=== PATIENT | female | born 1965 | race Caucasian/White ===

== ENCOUNTER 2018-02-11 15:59 | Emergency (ER) | payer SELFPAY ==
[2018-02-11 16:53] LABS: Hematocrit 30.5 % (30.3-42.9); Hemoglobin 10.3 gm/dl (10.1-14.3); Mean Corpuscular HGB Conc 34 % (30-34); Mean Corpuscular Volume 71 fl (79-97); Platelet Count 358 K/mm3 (140-440)
[2018-02-11 17:05] LABS: BUN/Creatinine Ratio 31; Blood Urea Nitrogen 43 mg/dL (7-17); Calcium 9.7 mg/dL (8.4-10.2); Hemolysis Index 0
[2018-02-11 17:12] LABS: Mean Corpuscular Hemoglobin 24 pg (28-32); Red Cell Distribution Width 21.7 % (13.2-15.2)
[2018-02-11 18:17] LABS: Band Neutrophils # (Manual) 0.9 K/mm3; Basophils % (Manual) 0 % (0.0-1.8); Eosinophils % (Manual) 0 % (0.0-4.3); Total Cells Counted 100
[2018-02-11 18:18] LABS: Anisocytosis 1+
[2018-02-11 18:19] LABS: Hypochromasia 2+; Target Cells Few
[2018-02-11 18:20] LABS: Ovalocytes Few; Platelet Estimate Consistent w Auto; Poikilocytosis Few
[2018-02-11 20:28] VITALS: BP 93/67
== END 2018-02-11 22:30 | disposition left against medical advice (07) ==
LOC: ED 15:59
DX: R07.81 Pleurodynia (principal); Z53.21 Procedure and treatment not carried out due to patient leaving prior to being seen by health care provider
CPT/HCPCS: 36415; 80048; 84484; 84703; 85007; 85025; 93005; 93010

== ENCOUNTER 2018-04-14 23:11 | Inpatient (IN) | payer MEDICAID ==
[2018-04-15 00:11] LABS: Hematocrit 29.5 % (30.3-42.9); Hemoglobin 9.7 gm/dl (10.1-14.3); Mean Corpuscular HGB Conc 33 % (30-34); Mean Corpuscular Volume 76 fl (79-97); Red Blood Count 3.88 M/mm3 (3.65-5.03)
[2018-04-15 00:14] LABS: Mean Corpuscular Hemoglobin 25 pg (28-32); Platelet Count 55 K/mm3 (140-440); Red Cell Distribution Width 20.3 % (13.2-15.2)
[2018-04-15 00:55] LABS: Albumin 2.2 g/dL (3.9-5); Calcium 8.9 mg/dL (8.4-10.2)
--- NOTE | 2018-04-15 02:20 | Emergency Department Report ---
ED Abdominal Pain HPI - General Chief Complaint: Abdominal Pain Stated Complaint: GENERAL WEAKNESS/FATIGUE Time Seen by Provider: 04/15/18 02:19 Source: family Mode of arrival: Stretcher Limitations: No Limitations - History of Present Illness Initial Comments: Patient has a history of intrabdominal cancer with metastasis. Complaint: abdominal pain -: Gradual Location: diffuse Radiation: none Migration to: no migration Severity: severe Severity scale (0 -10): 10 Quality: sharp Consistency: constant Improves With: nothing Worsens With: nothing Associated Symptoms: denies other symptoms - Related Data Previous Rx's Medication Instructions Recorded Last Taken Type ALBUTEROL Inhaler (OR & NICU) 2 puff IH QID PRN #1 unit 02/26/18 Unknown Rx [ProAir HFA Inhaler] Acetaminophen [Acetaminophen TAB] 650 mg PO Q4H PRN #15 tablet 02/26/18 Unknown Rx HYDROmorphone [Dilaudid] 2 mg PO Q6HR PRN #12 tablet 02/26/18 Unknown Rx Ondansetron [Zofran Odt] 4 mg PO Q4H PRN #30 tab.rapdis 02/26/18 Unknown Rx Allergies Allergy/AdvReac Type Severity Reaction Status Date / Time ketorolac [From Toradol] Allergy Swelling Verified 02/11/18 16:01 meperidine [From Demerol] Allergy Swelling Verified 02/11/18 16:01 ED Review of Systems ROS: Stated complaint: GENERAL WEAKNESS/FATIGUE Other details as noted in HPI Comment: Unobtainable due to pts medical conditions (Patient is too sick to give medical history or answer questions.) ED Past Medical Hx - Past Medical History Previous Medical History?: Yes Hx Dementia: No Additional medical history: Colon CA - Surgical History Past Surgical History?: Yes Additional Surgical History: colostomy. gallbadder surgery- not removed. powerport. left knee replacement. right and left carpal tunnel surgery - Social History Smoking Status: Never Smoker Substance Use Type: None - Medications Home Medications: Home Medications Medication Instructions Recorded Confirmed Last Taken Type ALBUTEROL Inhaler (OR & NICU) 2 puff IH QID PRN #1 unit 02/26/18 Unknown Rx [ProAir HFA Inhaler] Acetaminophen [Acetaminophen TAB] 650 mg PO Q4H PRN #15 tablet 02/26/18 Unknown Rx HYDROmorphone [Dilaudid] 2 mg PO Q6HR PRN #12 tablet 02/26/18 Unknown Rx Ondansetron [Zofran Odt] 4 mg PO Q4H PRN #30 tab.rapdis 02/26/18 Unknown Rx ED Physical Exam - General Limitations: No Limitations General appearance: alert, in distress - Head Head exam: Present: atraumatic, normocephalic, normal inspection - Eye Eye exam: Present: normal appearance, PERRL, EOMI Pupils: Present: normal accommodation - ENT ENT exam: Present: normal exam, mucous membranes dry - Neck Neck exam: Present: normal inspection, full ROM. Absent: tenderness - Respiratory Respiratory exam: Present: rales (bases) - Cardiovascular Cardiovascular Exam: Present: regular rate, normal rhythm, normal heart sounds - GI/Abdominal GI/Abdominal exam: Present: soft, tenderness (Diffused), guarding, normal bowel sounds. Absent: distended, rebound, rigid - Extremities Exam Extremities exam: Present: normal inspection, full ROM, normal capillary refill - Back Exam Back exam: Present: normal inspection, full ROM - Neurological Exam Neurological exam: Present: alert - Psychiatric Psychiatric exam: Present: flat affect - Skin Skin exam: Present: warm, dry, intact, normal color. Absent: rash ED Course Vital Signs 04/14/18 04/15/18 04/15/18 23:36 00:28 00:30 Temperature 98.7 F Pulse Rate 72 101 H Respiratory 17 24 24 Rate Blood Pressure 97/55 73/42 O2 Sat by Pulse 99 94 Oximetry 04/15/18 04/15/18 04/15/18 01:00 01:07 01:16 Temperature 98 F Pulse Rate 98 H 103 H Respiratory 37 H 31 H Rate Blood Pressure 79/56 79/56 O2 Sat by Pulse 89 Oximetry 04/15/18 04/15/18 04/15/18 01:30 01:46 02:00 Temperature Pulse Rate 96 H 101 H 98 H Respiratory 30 H 28 H 30 H Rate Blood Pressure 82/34 82/34 82/34 O2 Sat by Pulse 100 89 Oximetry 04/15/18 04/15/18 04/15/18 02:16 02:30 02:46 Temperature Pulse Rate 97 H 93 H 100 H Respiratory 29 H 19 30 H Rate Blood Pressure 86/32 86/32 O2 Sat by Pulse 75 L Oximetry 1004/15/18 04/15/18 03:00 03:15 03:30 Temperature Pulse Rate 87 85 85 Respiratory 21 20 16 Rate Blood Pressure 73/38 83/41 62/27 O2 Sat by Pulse 100 100 Oximetry 04/15/18 04/15/18 04/15/18 03:40 03:45 03:49 Temperature Pulse Rate 90 Respiratory 22 23 22 Rate Blood Pressure 75/33 O2 Sat by Pulse 100 100 Oximetry 04/15/18 04/15/18 04/15/18 04:00 04:10 04:15 Temperature Pulse Rate 87 91 H Respiratory 24 22 27 H Rate Blood Pressure 76/31 81/31 O2 Sat by Pulse 100 100 Oximetry 04/15/18 04/15/18 04/15/18 04:30 05:00 05:04 Temperature Pulse Rate 95 H 86 Respiratory 29 H 23 22 Rate Blood Pressure 76/36 79/36 O2 Sat by Pulse 100 100 Oximetry 04/15/18 04/15/18 04/15/18 05:15 05:30 05:34 Temperature Pulse Rate 82 91 H Respiratory 17 31 H 20 Rate Blood Pressure 83/45 75/31 O2 Sat by Pulse 100 Oximetry 04/15/18 04/15/18 04/15/18 05:46 06:00 06:15 Temperature Pulse Rate 91 H 89 84 Respiratory 22 22 16 Rate Blood Pressure 92/56 105/64 95/59 O2 Sat by Pulse 100 Oximetry 04/15/18 04/15/18 04/15/18 06:30 06:46 07:00 Temperature Pulse Rate 91 H 101 H 87 Respiratory 24 27 H 19 Rate Blood Pressure 95/59 94/55 76/42 O2 Sat by Pulse 100 100 100 Oximetry 04/15/18 07:15 Temperature Pulse Rate 86 Respiratory 15 Rate Blood Pressure 87/51 O2 Sat by Pulse 100 Oximetry - Consultations Consultation #1: 04/15/18 06:05 I consulted the hospitalist partition assembly machine operator Dr Kanwal Warner who will admit patient for further management. ED Medical Decision Making - Lab Data Result diagrams: 04/14/18 23:52 04/14/18 23:52 Lab Results 04/14/18 04/14/18 Range/Units 23:52 23:52 WBC 12.7 H (4.5-11.0) K/mm3 RBC 3.88 (3.65-5.03) M/mm3 Hgb 9.7 L (10.1-14.3) gm/dl Hct 29.5 L (30.3-42.9) % MCV 76 L (79-97) fl MCH 25 L (28-32) pg MCHC 33 (30-34) % RDW 20.3 H (13.2-15.2) % Plt Count 55 L (140-440) K/mm3 Add Manual Diff Complete Total Counted 100 Seg Neuts % (Manual) 90.0 H (40.0-70.0) % Band Neutrophils % 0 % Lymphocytes % (Manual) 10.0 L (13.4-35.0) % Reactive Lymphs % (Man) 0 % Monocytes % (Manual) 0 (0.0-7.3) % Eosinophils % (Manual) 0 (0.0-4.3) % Basophils % (Manual) 0 (0.0-1.8) % Metamyelocytes % 0 % Myelocytes % 0 % Promyelocytes % 0 % Blast Cells % 0 % Nucleated RBC % 2.0 H (0.0-0.9) % Seg Neutrophils # Man 11.4 H (1.8-7.7) K/mm3 Band Neutrophils # 0.0 K/mm3 Lymphocytes # (Manual) 1.3 (1.2-5.4) K/mm3 Abs React Lymphs (Man) 0.0 K/mm3 Monocytes # (Manual) 0.0 (0.0-0.8) K/mm3 Eosinophils # (Manual) 0.0 (0.0-0.4) K/mm3 Basophils # (Manual) 0.0 (0.0-0.1) K/mm3 Metamyelocytes # 0.0 K/mm3 Myelocytes # 0.0 K/mm3 Promyelocytes # 0.0 K/mm3 Blast Cells # 0.0 K/mm3 WBC Morphology Not Reportable Hypersegmented Neuts Not Reportable Hyposegmented Neuts Not Reportable Hypogranular Neuts Not Reportable Smudge Cells Not Reportable Toxic Granulation Not Reportable Toxic Vacuolation Not Reportable Dohle Bodies Not Reportable Pelger-Huet Anomaly Not Reportable Mary Rods Not Reportable Platelet Estimate Appears decreased Clumped Platelets Not Reportable Plt Clumps, EDTA Not Reportable Large Platelets Not Reportable Giant Platelets Not Reportable Platelet Satelliting Not Reportable Plt Morphology Comment Not Reportable RBC Morphology Not Reportable Dimorphic RBCs Not Reportable Polychromasia Not Reportable Hypochromasia 1+ Poikilocytosis Not Reportable Anisocytosis 1+ Microcytosis Not Reportable Macrocytosis Not Reportable Spherocytes Not Reportable Pappenheimer Bodies Not Reportable Sickle Cells Not Reportable Target Cells 2+ Tear Drop Cells Not Reportable Ovalocytes Not Reportable Helmet Cells Not Reportable Rich-Hust[place]ord Bodies Not Reportable [place] Rings Not Reportable [place] Cells Not Reportable Bite Cells Not Reportable Crenated Cell Not Reportable Elliptocytes Not Reportable Acanthocytes (Spur) Not Reportable Rouleaux Not Reportable Hemoglobin C Crystals Not Reportable Schistocytes Not Reportable Malaria parasites Not Reportable Emanuel Bodies Not Reportable Hem Pathologist Commnt No Sodium 140 (137-145) mmol/L Potassium 4.0 (3.6-5.0) mmol/L Chloride 97.5 L (98-107) mmol/L Carbon Dioxide 11 L (22-30) mmol/L Anion Gap 36 mmol/L BUN 102 H (7-17) mg/dL Creatinine 6.5 H (0.7-1.2) mg/dL Estimated GFR 7 ml/min BUN/Creatinine Ratio 16 % Glucose 74 (65-100) mg/dL Calcium 8.9 (8.4-10.2) mg/dL Total Bilirubin 12.50 H (0.1-1.2) mg/dL AST 68 H (5-40) units/L ALT 44 (7-56) units/L Alkaline Phosphatase 1685 H (35-129) units/L Total Protein 6.7 (6.3-8.2) g/dL Albumin 2.2 L (3.9-5) g/dL Albumin/Globulin Ratio 0.5 % Lipase 63 H (13-60) units/L - Radiology Data Radiology results: report reviewed, image reviewed Metastatic abdominal malignancy on CT abdomen and pelvis. - Medical Decision Making Patient will be admitted by the hospitalist since her family wants her to be full code and admitted to the hospital. Critical Care Time: Yes Critical care time in (mins) excluding proc time.: 50 Critical care attestation.: If time is entered above; I have spent that time in minutes in the direct care of this critically ill patient, excluding procedure time. ED Disposition Clinical Impression: Neoplasm, intra-abdominal, malignant Pneumonia Qualifiers: Pneumonia type: due to unspecified organism Laterality: unspecified laterality Lung location: lower lobe of lung Qualified Code(s): J18.1 - Lobar pneumonia, unspecified organism Sepsis Qualifiers: Sepsis type: sepsis due to unspecified organism Qualified Code(s): A41.9 - Sepsis, unspecified organism Hypotension Qualifiers: Hypotension type: unspecified hypotension type Qualified Code(s): I95.9 - Hypotension, unspecified Disposition: DC-09 OP ADMIT IP TO THIS HOSP Is pt being admited?: Yes Does the pt Need Aspirin: No Condition: Stable Time of Disposition: 05:54
[2018-04-15] MEDS ORDERED: NACL 0.9% 1000 ML 1,000 ML IV ONE ×3 (02:32→03:38)
[2018-04-15] MEDS ORDERED: ZOFRAN IV ONE (02:32)
[2018-04-15 02:47] LABS: Basophils % (Manual) 0 % (0.0-1.8); Eosinophils % (Manual) 0 % (0.0-4.3); Monocytes % (Manual) 0 % (0.0-7.3); Target Cells 2+; Total Cells Counted 100
[2018-04-15 02:48] LABS: Anisocytosis 1+; Hypochromasia 1+; Platelet Estimate Appears Decreased
[2018-04-15] MEDS ORDERED: SUBLIMAZE IV ONE ×2 (02:56→03:39)
[2018-04-15] MEDS ORDERED: SUBLIMAZE ONE (03:00)
--- NOTE | 2018-04-15 03:13 | XRay Report ---
FINAL REPORT PROCEDURE: XR ABDOMEN 1V AP TECHNIQUE: AP supine portable radiograph of the abdomen was obtained at 04/15/2018 02:44 (EST) . HISTORY: abdominal pain COMPARISON: No prior studies are available for comparison. FINDINGS: Bowel gas pattern: Nonobstructive. Masses or calcifications: None. Bony structures: Normal. Other: There is a right lower quadrant masslike density corresponding to the patient is colostomy.. There is a biliary stent. IMPRESSION: There is no bowel obstruction, fecal impaction or free air.
--- NOTE | 2018-04-15 03:16 | XRay Report ---
FINAL REPORT PROCEDURE: XR CHEST 1V AP TECHNIQUE: Chest radiograph anteroposterior view. CPT 39182 HISTORY: anni COMPARISON: No prior studies are available for comparison. FINDINGS: Heart: Normal. Mediastinum/Vessels: Normal. Lungs/Pleural space: There are opacities in the right lung which are increased in size since the prior study suggesting worsened infiltrates or enlarging masses. There is a left perihilar opacity which could be mass or enlarged lymph node. There are no pleural effusions or pneumothoraces. Bony thorax: No acute osseous abnormality. Life support devices: There is a left subclavian central venous catheter. The tip is in the superior vena cava.. IMPRESSION: Heart size is normal.. There are opacities in the right lung which are increased in size since the prior study suggesting worsened infiltrates or enlarging masses. There is a left perihilar opacity which could be mass or enlarged lymph node. There are no pleural effusions or pneumothoraces. There is a left subclavian central venous catheter. The tip is in the superior vena cava..
[2018-04-15] MEDS ORDERED: LEVAQUIN 750MG/150ML 750 MG/150 ML BAG IV ONE (03:34)
[2018-04-15] MEDS ORDERED: NACL 0.9% 1000 ML IV ONE (03:35)
[2018-04-15] MEDS ORDERED: LEVOPHED DRIP 4 MG/NS 250 ML 4 MG/250 ML BAG IV ONE (04:31)
--- NOTE | 2018-04-15 05:35 | Cat Scan Report ---
FINAL REPORT PROCEDURE: CT ABDOMEN PELVIS WO CON TECHNIQUE: Computerized axial tomography of the abdomen and pelvis was performed without intravenous contrast. This study is performed without intravascular contrast material and its sensitivity for abdominal and pelvic pathology, including neoplasms, inflammation, abscess, free fluid, thrombosis, arterial dissection and infarction, is reduced compared with a contrast enhanced study. HISTORY: Abdominal Pain COMPARISON: 02/24/2018 FINDINGS: Visualized lower thorax: Bilateral pulmonary masses again noted suspicious for metastatic malignancy.. Liver: Liver is enlarged and heterogeneous with evidence of possible metastatic malignancy.. Spleen: Normal size and attenuation. Gallbladder and biliary system: There has been a cholecystectomy. There is a stent in the common bile duct. The intrahepatic bile ducts are dilated.. Pancreas: There is a mass in the head of the pancreas suspicious for malignancy.. Adrenals: There is a left adrenal mass suspicious for malignancy.. Kidneys: There are no kidney stones or ureteral stones. There is no hydronephrosis.. GI tract: There is a right lower quadrant colostomy. There is no bowel obstruction.. Lymph nodes and mesentery: Normal. Vasculature: Normal. Bladder: Normal. Reproductive organs: Normal. Peritoneum: There is no ascites or free air.. Musculoskeletal structures: No significant abnormality. Other: There is bilateral inguinal lymphadenopathy. There is pelvic and retroperitoneal and mesenteric adenopathy suspicious for metastatic malignancy.. IMPRESSION: Bilateral pulmonary masses again noted suspicious for metastatic malignancy.. Liver is enlarged and heterogeneous with evidence of possible metastatic malignancy.. There has been a cholecystectomy. There is a stent in the common bile duct. The intrahepatic bile ducts are dilated.. There is a mass in the head of the pancreas suspicious for malignancy.. There is a left adrenal mass suspicious for malignancy.. There are no kidney stones or ureteral stones. There is no hydronephrosis.. There is a right lower quadrant colostomy. There is no bowel obstruction.. There is no ascites or free air.. There is bilateral inguinal lymphadenopathy. There is pelvic and retroperitoneal and mesenteric adenopathy suspicious for metastatic malignancy.. .
--- NOTE | 2018-04-15 06:07 | History and Physical Report ---
History of Present Illness Date of examination: 04/15/18 History of present illness: 52-year-old lady with a history of metastatic colon cancer status post colostomywas brought to the emergency room by her daughter for evaluation of optimal pain. Patient was on hospice, the daughter took her off hospice and made her full code. She has chronic abdominal pain, but stated her pain got worse. Patient at this time only states she is hurting all over, cannot refer to history. Try to reach the daughter without success. She was hypotensive in the emergency room was started on levophed drip. Review of systems. Patient was admitted in February, admission reviewed PAST MEDICAL HISTORY: Metastatic colon cancer PAST SURGICAL HISTORY: Colon resection with Colostomy, cholecystectomy, bilateral knee, cataract SOCIAL HISTORY: No alcohol, no drugs, tobacco FAMILY HISTORY: Hypertension Medications and Allergies Allergies Allergy/AdvReac Type Severity Reaction Status Date / Time ketorolac [From Toradol] Allergy Swelling Verified 02/11/18 16:01 meperidine [From Demerol] Allergy Swelling Verified 02/11/18 16:01 Home Medications Medication Instructions Recorded Confirmed Last Taken Type ALBUTEROL Inhaler (OR & NICU) 2 puff IH QID PRN #1 unit 02/26/18 Unknown Rx [ProAir HFA Inhaler] Acetaminophen [Acetaminophen TAB] 650 mg PO Q4H PRN #15 tablet 02/26/18 Unknown Rx HYDROmorphone [Dilaudid] 2 mg PO Q6HR PRN #12 tablet 02/26/18 Unknown Rx Ondansetron [Zofran Odt] 4 mg PO Q4H PRN #30 tab.rapdis 02/26/18 Unknown Rx Active Meds: Active Medications Norepinephrine (Levophed Drip 4 Mg/Ns 250 Ml) 4 mg in 250 mls @ 7.5 mls/hr IV TITR LIBRADO; Protocol Exam - Physical Exam Narrative exam: Gen. appearance: Patient lying in bed, no apparent distress, cachectic HEENT: Normocephalic, atraumatic, pupils equally round and reactive to light, extraocular movement intact, +sclericterus,. No JVD or thyromegaly or nodule, neck supple, no carotid bruit ,mucous membranes moist, no exudate or erythema Heart: S1, S2, regular rate and rhythm Lungs: Clear bilaterally anteriorly, breathing comfortable Abdomen: Positive bowel sounds,+ colostomy bag, tender, nondistended, no organomegaly Extremity:no edema cyanosis, clubbing Skin: no rash, dry, warm Neuro: difficult to assess - Constitutional Vitals: Temp Pulse Resp BP Pulse Ox 98 F 90 22 75/33 100 04/15/18 01:07 04/15/18 03:45 04/15/18 05:04 04/15/18 03:45 04/15/18 03:49 Results - Labs CBC & Chem 7: 04/14/18 23:52 04/14/18 23:52 Labs: Abnormal lab results 04/14/18 04/14/18 Range/Units 23:52 23:52 WBC 12.7 H (4.5-11.0) K/mm3 Hgb 9.7 L (10.1-14.3) gm/dl Hct 29.5 L (30.3-42.9) % MCV 76 L (79-97) fl MCH 25 L (28-32) pg RDW 20.3 H (13.2-15.2) % Plt Count 55 L (140-440) K/mm3 Seg Neuts % (Manual) 90.0 H (40.0-70.0) % Lymphocytes % (Manual) 10.0 L (13.4-35.0) % Nucleated RBC % 2.0 H (0.0-0.9) % Seg Neutrophils # Man 11.4 H (1.8-7.7) K/mm3 Chloride 97.5 L (98-107) mmol/L Carbon Dioxide 11 L (22-30) mmol/L BUN 102 H (7-17) mg/dL Creatinine 6.5 H (0.7-1.2) mg/dL Total Bilirubin 12.50 H (0.1-1.2) mg/dL AST 68 H (5-40) units/L Alkaline Phosphatase 1685 H (35-129) units/L Albumin 2.2 L (3.9-5) g/dL Lipase 63 H (13-60) units/L - Imaging and Cardiology CT scan - abdomen: report reviewed CT scan - pelvis: report reviewed Assessment and Plan Assessment Worsening abdominal pain secondary to worsening colon cancer Acute on chronic renal failure, dehydration SIRS Thrombocytopenia Colon Cancer Plan Admit to medicine Stat IV fluid,continue levophed drip,check lactic acid Start IV vancomycin, Zosyn, first dose now, follow cultures Consult renal, critical care Prognosis is poor DVT prophalaxis
[2018-04-15] MEDS ORDERED: TYLENOL PR PRN (06:10)
[2018-04-15] MEDS ORDERED: TYLENOL PO PRN (06:10)
[2018-04-15] MEDS ORDERED: MORPHINE IV PRN (06:10)
[2018-04-15] MEDS ORDERED: ZOFRAN IV PRN (06:10)
[2018-04-15] MEDS ORDERED: SODIUM CHLORIDE FLUSH SYRINGE 10 ML IV PRN (06:10)
[2018-04-15] MEDS: LEVOPHED DRIP 4 MG/NS 250 ML 4 MG/250 ML BAG IV SCH ×5 (06:13→23:41)
[2018-04-15] MEDS ORDERED: VANCOMYCIN/NS 1 GM/250 ML 1 GM/250 ML BAG IV ONE (06:14)
[2018-04-15] MEDS ORDERED: VANCOMYCIN 2,000 MG in NACL 0.9% 500 ML 500 ML IV ONE (06:15)
[2018-04-15] MEDS ORDERED: VANCOMYCIN 500 MG in NACL 0.9% 100 ML IV ONE (06:30)
[2018-04-15] MEDS ORDERED: NACL 0.9% 1000 ML 1,000 ML IV SCH ×3 (07:00→18:00)
[2018-04-15] MEDS ORDERED: VANCOMYCIN/NS 1 GM/250 ML 1 GM/250 ML BAG IV SCH ×2 (07:00→13:00)
[2018-04-15 07:05] LABS: Bacteria,Urine 4+ /HPF (Negative); Bilirubin,Urine SM (Negative); Blood,Urine MOD (Negative); Color,Urine Amber (Yellow); Mucus,Urine FEW /HPF; Urobilinogen,Urine < 2.0 mg/dL (<2.0)
[2018-04-15 07:23] LABS: Ictotest,Urine Positive (Negative)
[2018-04-15 07:28] LABS: INR 1.4 (0.87-1.13)
[2018-04-15] MEDS ORDERED: ZOSYN/NS 2.25 GM/50ML 2.25 GM/50 ML BAG IV SCH (08:00)
--- NOTE | 2018-04-15 08:16 | Consultation ---
History of Present Illness - Reason for Consult Consult date: 04/15/18 acute renal failure, chronic renal failure - History of Present Illness The patient is a 52 YO female with history significant for Colon cancer, s/p colostomy(2017), chronic back pain and CKD stage 3 who was brought to the emergency room by her daughter for evaluation of abdominal pain. Unable to obtain any histroy from patient and no family member was at the bedside. Patient was on hospice, the daughter took her off hospice and made her full code. She has chronic abdominal pain, which has gotten worse. She was hypotensive in the emergency room was started on Levophed drip and received multiple IV fluid boluses. Labs are significant for Leukocytosis, creatinine 5.7 and Lactic acidosis. Past History Past Medical History: renal failure, other (colon cancer) Medications and Allergies Allergies Allergy/AdvReac Type Severity Reaction Status Date / Time ketorolac [From Toradol] Allergy Swelling Verified 02/11/18 16:01 meperidine [From Demerol] Allergy Swelling Verified 02/11/18 16:01 Home Medications Medication Instructions Recorded Confirmed Last Taken Type ALBUTEROL Inhaler (OR & NICU) 2 puff IH QID PRN #1 unit 02/26/18 Unknown Rx [ProAir HFA Inhaler] Acetaminophen [Acetaminophen TAB] 650 mg PO Q4H PRN #15 tablet 02/26/18 Unknown Rx HYDROmorphone [Dilaudid] 2 mg PO Q6HR PRN #12 tablet 02/26/18 Unknown Rx Ondansetron [Zofran Odt] 4 mg PO Q4H PRN #30 tab.rapdis 02/26/18 Unknown Rx Active Meds: Active Medications Acetaminophen (Tylenol) 650 mg PO Q4H PRN PRN Reason: Pain MILD(1-3)/Fever >100.5/BATES Acetaminophen (Tylenol) 650 mg [place] Q4H PRN PRN Reason: Pain MILD(1-3)/Fever >100.5/BATES Norepinephrine (Levophed Drip 4 Mg/Ns 250 Ml) 4 mg in 250 mls @ 7.5 mls/hr IV TITR LIBRADO; Protocol Last Titration: 04/15/18 07:19 Dose: 10 mcg/min, 37.5 mls/hr Piperacillin Sod/Tazobactam Sod (Zosyn/Ns 2.25 Gm/50ml) 2.25 gm in 50 mls @ 100 mls/hr IV Q8H LIBRADO; Protocol Sodium Chloride (Nacl 0.9% 1000 Ml) 1,000 mls @ 75 mls/hr IV DIRECT LIBRADO Morphine Sulfate (Morphine) 1 mg IV Q4H PRN PRN Reason: Pain, Moderate (4-6) Ondansetron HCl (Zofran) 4 mg IV Q4H PRN PRN Reason: Nausea And Vomiting Sodium Chloride (Sodium Chloride Flush Syringe 10 Ml) 10 ml IV BID LIBRADO Sodium Chloride (Sodium Chloride Flush Syringe 10 Ml) 10 ml IV PRN PRN PRN Reason: LINE FLUSH Review of Systems ROS unobtainable: due to mental status Exam - Vital Signs Vital signs: Vital Signs Temp Pulse Resp BP Pulse Ox 98.7 F 72 17 97/55 99 04/14/18 23:36 04/14/18 23:36 04/14/18 23:36 04/14/18 23:36 04/14/18 23:36 - General Appearance General appearance: well-developed, appears stated age, cachectic, chronically ill, frail EENT: ATNC, PERRL, mucous membranes dry Neck: Present: neck supple, trachea midline Respiratory: Clear to Ascultation Heart: regular, S1S2, no murmurs Gastrointestinal: Present: normoactive bowel sounds, other (ostomy noted). Absent: distended Integumentary: no rash, warm and dry Neurologic: other (lethargic, not following any command) Musculoskeletal: Present: other (no edema) Results - Lab Results 04/15/18 11:40 04/15/18 11:40 Most recent lab results Calcium 8.9 mg/dL (8.4-10.2) 04/14/18 23:52 Assessment and Plan 1. Acute kidney injury: Vasomotor / hemodynamic JEANNE superimposed on CKD stage 3 in the setting of hypotension / shock. CT negative for any hydronephrosis. Continue IV fluid bolus. Maintenance IV fluids. Renal prognosis is guarded. 2. Lactic acidosis: IV bicarbonate drip. 3. Septic shock: Multiple IV anitbiotics and IV Levophed. 4. Encephalopathy.
[2018-04-15] MEDS: SODIUM CHLORIDE FLUSH SYRINGE 10 ML IV SCH ×2 (09:13→22:25)
--- NOTE | 2018-04-15 10:29 | Event Note ---
Date: 04/15/18 Patient seen and examined, with nursing staff at the bedside. Patient remains remarkably weak and lethergic. Lactic acid rising. Per information from family conveyed to the Nursing staff patient with hx of Colon CA. unable to get more information at this time. Will give additional 2 liter fluids. Also will consult Nephrology and ID. Right lower ext is noted to be edematous and cool to the touch, will obtain doppler to eval for DVT and also may need a PAD work up if Doppler is negative. Specification Consultant consult Patient is critically ill with poor prognosis She has a left chest port.
--- NOTE | 2018-04-15 12:10 | Consultation ---
History of Present Illness - Reason for Consult Consult date: 04/15/18 Septic shock Requesting physician: ABDIFATAH MCKINNON - History of Present Illness The patient is a 52-year-old female with metastatic colon cancer, status post colostomy who was brought to the emergency room last night with complaints of abdominal pain. Reportedly, the patient was on hospice, however, her daughter took her off hospice and brought her to the hospital. Patient is unable to provide any history. Only appears to be moaning in bed. Upon arrival, she was noted to be hypotensive. Was given IV fluids and started on IV levophed. Was also empirically started on IV vancomycin and Zosyn. History obtained by chart review and by discussing the patient's bedside RN. Review of systems cannot be obtained due to the patient's mental status. Medications and Allergies Allergies Allergy/AdvReac Type Severity Reaction Status Date / Time ketorolac [From Toradol] Allergy Swelling Verified 02/11/18 16:01 meperidine [From Demerol] Allergy Swelling Verified 02/11/18 16:01 Home Medications Medication Instructions Recorded Confirmed Last Taken Type ALBUTEROL Inhaler (OR & NICU) 2 puff IH QID PRN #1 unit 02/26/18 Unknown Rx [ProAir HFA Inhaler] Acetaminophen [Acetaminophen TAB] 650 mg PO Q4H PRN #15 tablet 02/26/18 Unknown Rx HYDROmorphone [Dilaudid] 2 mg PO Q6HR PRN #12 tablet 02/26/18 Unknown Rx Ondansetron [Zofran Odt] 4 mg PO Q4H PRN #30 tab.rapdis 02/26/18 Unknown Rx Active Meds: Active Medications Acetaminophen (Tylenol) 650 mg PO Q4H PRN PRN Reason: Pain MILD(1-3)/Fever >100.5/BATES Acetaminophen (Tylenol) 650 mg [place] Q4H PRN PRN Reason: Pain MILD(1-3)/Fever >100.5/BATES Norepinephrine (Levophed Drip 4 Mg/Ns 250 Ml) 4 mg in 250 mls @ 7.5 mls/hr IV TITR LIBRADO; Protocol Last Titration: 04/15/18 09:07 Dose: 12 mcg/min, 45 mls/hr Piperacillin Sod/Tazobactam Sod (Zosyn/Ns 2.25 Gm/50ml) 2.25 gm in 50 mls @ 100 mls/hr IV Q8H LIBRADO; Protocol Last Admin: 04/15/18 09:13 Dose: 100 mls/hr Sodium Chloride (Nacl 0.9% 1000 Ml) 1,000 mls @ 75 mls/hr IV DIRECT [facility] Last Admin: 04/15/18 10:55 Dose: 75 mls/hr Sodium Chloride (Nacl 0.9% 1000 Ml) 1,000 mls @ 0 mls/hr IV ONCE [facility] Stop: 04/16/18 11:01 Morphine Sulfate (Morphine) 1 mg IV Q4H PRN PRN Reason: Pain, Moderate (4-6) Ondansetron HCl (Zofran) 4 mg IV Q4H PRN PRN Reason: Nausea And Vomiting Sodium Chloride (Sodium Chloride Flush Syringe 10 Ml) 10 ml IV BID [facility] Last Admin: 04/15/18 09:13 Dose: 10 ml Sodium Chloride (Sodium Chloride Flush Syringe 10 Ml) 10 ml IV PRN PRN PRN Reason: LINE FLUSH Physical Examination - Physical Exam Narrative exam: Physical Exam: Constitutional: Awake, moaning in bed, in moderate distress from pain Head, Ears, Nose: Normocephalic, atraumatic. External ears, nose normal Eyes: Conjunctivae/corneas clear. Icterus +, No ptosis. Neck: Supple, no meningeal signs Oral: appears dry, no thrush. Cardiovascular: S1, S2 normal. Respiratory: bilateral rhonchi +, no wheeze. GI: diffusely tender; bowel sounds present No peritoneal signs. colostomy + in RLQ. Musculoskeletal: No pedal edema. Appears to be tender all over Skin: No rash or abscess Hem/Lymphatic: No palpable cervical or supraclavicular nodes. No lymphangitis Psych: no agitation, but appears in discomfort Neurological: Awake, moaning in bed, doesn't answer questions. - Constitutional Vitals: Vital Signs Temp Pulse Resp BP Pulse Ox 96.7 F L 80 19 101/54 100 04/15/18 08:00 04/15/18 11:00 04/15/18 11:00 04/15/18 11:00 04/15/18 11:00 Temperature -Last 24 Hours Temperature 96.7 F Temperature 98 F Temperature 98.7 F Results - Labs CBC & Chem 7: 04/14/18 23:52 04/14/18 23:52 Labs: UA showed 66 WBCs per high power field. Abnormal lab results 04/14/18 04/14/18 04/15/18 Range/Units 23:52 23:52 05:49 WBC 12.7 H (4.5-11.0) K/mm3 Hgb 9.7 L (10.1-14.3) gm/dl Hct 29.5 L (30.3-42.9) % MCV 76 L (79-97) fl MCH 25 L (28-32) pg RDW 20.3 H (13.2-15.2) % Plt Count 55 L (140-440) K/mm3 Seg Neuts % (Manual) 90.0 H (40.0-70.0) % Lymphocytes % (Manual) 10.0 L (13.4-35.0) % Nucleated RBC % 2.0 H (0.0-0.9) % Seg Neutrophils # Man 11.4 H (1.8-7.7) K/mm3 PT (12.2-14.9) Sec. INR (0.87-1.13) Chloride 97.5 L (98-107) mmol/L Carbon Dioxide 11 L (22-30) mmol/L BUN 102 H (7-17) mg/dL Creatinine 6.5 H (0.7-1.2) mg/dL Lactic Acid (0.7-2.0) mmol/L Total Bilirubin 12.50 H (0.1-1.2) mg/dL AST 68 H (5-40) units/L Alkaline Phosphatase 1685 H (35-129) units/L Albumin 2.2 L (3.9-5) g/dL Lipase 63 H (13-60) units/L Urine WBC (Auto) 66.0 H (0.0-6.0) /HPF 04/15/18 04/15/18 04/15/18 Range/Units 06:27 06:47 08:55 WBC (4.5-11.0) K/mm3 Hgb (10.1-14.3) gm/dl Hct (30.3-42.9) % MCV (79-97) fl MCH (28-32) pg RDW (13.2-15.2) % Plt Count (140-440) K/mm3 Seg Neuts % (Manual) (40.0-70.0) % Lymphocytes % (Manual) (13.4-35.0) % Nucleated RBC % (0.0-0.9) % Seg Neutrophils # Man (1.8-7.7) K/mm3 PT 17.7 H (12.2-14.9) Sec. INR 1.40 H (0.87-1.13) Chloride (98-107) mmol/L Carbon Dioxide (22-30) mmol/L BUN (7-17) mg/dL Creatinine (0.7-1.2) mg/dL Lactic Acid 8.60 H* 9.40 H* (0.7-2.0) mmol/L Total Bilirubin (0.1-1.2) mg/dL AST (5-40) units/L Alkaline Phosphatase (35-129) units/L Albumin (3.9-5) g/dL Lipase (13-60) units/L Urine WBC (Auto) (0.0-6.0) /HPF - Imaging and Cardiology Chest x-ray: report reviewed, image reviewed (Chest x-ray shows evidence of a left-sided port, right middle and lower lobe opacities.) CT scan - abdomen: report reviewed, image reviewed (CT abdomen and pelvis was reviewed and showed evidence of hepatic and pulmonary metastasis with lymphadenopathy. No free fluid.) Assessment and Plan Cultures: 04/15/2018 blood culture: In process A/P: 52-year-old female with metastatic colon cancer status post colostomy who was on hospice now admitted with: 1) Septic shock, likely secondary to cholestatic jaundice, possible acute cholangitis: This is likely secondary to obstruction from malignancy. Her alkaline phosphatase and bilirubin are significantly elevated compared to her February 2018 admission. Patient also has evidence of lactic acidosis, shock requiring pressors. From a respiratory standpoint, she is not requiring any oxygen, she however has evidence of bilateral pulmonary metastases and there could be a component of a small postobstructive pneumonia. Given her indwelling port, a bacteremia is possible as well, for now continue empiric antibiotics (switch Zosyn to Cefepime and Flagyl) and vancomycin which should provide adequate coverage for intra-abdominal/cholangitis source and bacteremia. 2) Acute renal failure: Creatinine on admission was 6.5, during her previous admission in February 2018, it was 1.6. Renally dose abx. Recs: -Given her acute renal failure, will switch Zosyn to Cefepime to avoid Zosyn- Vancomycin combination (this is associated with a four-fold increased risk of JEANNE compared to Vancomycin and other beta-lactam combinations based on several observational studies) -added Flagyl for anaerobic coverage -Prognosis is extremely poor, recommend palliative care Plan d/w Dr. Mckinnon. Please call with questions. Will follow along. MD Joelle [facility] C: [phone] O: [phone] F: [phone]
--- NOTE | 2018-04-15 12:10 | Consultation ---
History of Present Illness Consult date: 04/15/18 Requesting physician: ALVIN FERRARO Reason for consult: other (SIRS; Abdominal Pain; Colon Cancer; JEANNE on CKD) History of present illness: PULMONARY/CCM CONSULT NOTE (Full dictation # [id number]) Please see dictated notes for full details Medications and Allergies Allergies Allergy/AdvReac Type Severity Reaction Status Date / Time ketorolac [From Toradol] Allergy Swelling Verified 02/11/18 16:01 meperidine [From Demerol] Allergy Swelling Verified 02/11/18 16:01 Home Medications Medication Instructions Recorded Confirmed Last Taken Type ALBUTEROL Inhaler (OR & NICU) 2 puff IH QID PRN #1 unit 02/26/18 Unknown Rx [ProAir HFA Inhaler] Acetaminophen [Acetaminophen TAB] 650 mg PO Q4H PRN #15 tablet 02/26/18 Unknown Rx HYDROmorphone [Dilaudid] 2 mg PO Q6HR PRN #12 tablet 02/26/18 Unknown Rx Ondansetron [Zofran Odt] 4 mg PO Q4H PRN #30 tab.rapdis 02/26/18 Unknown Rx Active Meds: Active Medications Acetaminophen (Tylenol) 650 mg PO Q4H PRN PRN Reason: Pain MILD(1-3)/Fever >100.5/BATES Acetaminophen (Tylenol) 650 mg [place] Q4H PRN PRN Reason: Pain MILD(1-3)/Fever >100.5/BATES Norepinephrine (Levophed Drip 4 Mg/Ns 250 Ml) 4 mg in 250 mls @ 7.5 mls/hr IV TITR [facility]RADO; Protocol Last Titration: 04/15/18 09:07 Dose: 12 mcg/min, 45 mls/hr Piperacillin Sod/Tazobactam Sod (Zosyn/Ns 2.25 Gm/50ml) 2.25 gm in 50 mls @ 100 mls/hr IV Q8H [facility]RAD[facility]; Protocol Last Admin: 04/15/18 09:13 Dose: 100 mls/hr Sodium Chloride (Nacl 0.9% 1000 Ml) 1,000 mls @ 75 mls/hr IV DIRECT [facility]RADO Last Admin: 04/15/18 10:55 Dose: 75 mls/hr Sodium Chloride (Nacl 0.9% 1000 Ml) 1,000 mls @ 0 mls/hr IV ONCE LIBRADO Stop: 04/16/18 11:01 Morphine Sulfate (Morphine) 1 mg IV Q4H PRN PRN Reason: Pain, Moderate (4-6) Ondansetron HCl (Zofran) 4 mg IV Q4H PRN PRN Reason: Nausea And Vomiting Sodium Chloride (Sodium Chloride Flush Syringe 10 Ml) 10 ml IV BID [facility] Last Admin: 04/15/18 09:13 Dose: 10 ml Sodium Chloride (Sodium Chloride Flush Syringe 10 Ml) 10 ml IV PRN PRN PRN Reason: LINE FLUSH Physical Examination Vital signs: Vital Signs Temp Pulse Resp BP Pulse Ox 98.7 F 72 17 97/55 99 04/14/18 23:36 04/14/18 23:36 04/14/18 23:36 04/14/18 23:36 04/14/18 23:36 Results - Laboratory Findings CBC and BMP: 04/15/18 11:40 04/15/18 11:40 PT/INR, D-dimer PT 17.7 Sec. (12.2-14.9) H 04/15/18 06:47 INR 1.40 (0.87-1.13) H 04/15/18 06:47 Abnormal lab findings: Abnormal Labs 04/14/18 04/14/18 04/15/18 23:52 23:52 05:49 WBC 12.7 H Hgb 9.7 L Hct 29.5 L MCV 76 L MCH 25 L RDW 20.3 H Plt Count 55 L Seg Neuts % (Manual) 90.0 H Lymphocytes % (Manual) 10.0 L Nucleated RBC % 2.0 H Seg Neutrophils # Man 11.4 H PT INR Chloride 97.5 L Carbon Dioxide 11 L BUN 102 H Creatinine 6.5 H Lactic Acid Total Bilirubin 12.50 H AST 68 H Alkaline Phosphatase 1685 H Albumin 2.2 L Lipase 63 H Urine WBC (Auto) 66.0 H 04/15/18 04/15/18 04/15/18 06:27 06:47 08:55 WBC Hgb Hct MCV MCH RDW Plt Count Seg Neuts % (Manual) Lymphocytes % (Manual) Nucleated RBC % Seg Neutrophils # Man PT 17.7 H INR 1.40 H Chloride Carbon Dioxide BUN Creatinine Lactic Acid 8.60 H* 9.40 H* Total Bilirubin AST Alkaline Phosphatase Albumin Lipase Urine WBC (Auto)
[2018-04-15 12:15] LABS: Hematocrit 29.5 % (30.3-42.9); Hemoglobin 9.2 gm/dl (10.1-14.3); Mean Corpuscular HGB Conc 31 % (30-34); Mean Corpuscular Volume 78 fl (79-97); Red Blood Count 3.78 M/mm3 (3.65-5.03)
[2018-04-15 12:29] LABS: Mean Corpuscular Hemoglobin 24 pg (28-32); Platelet Count 42 K/mm3 (140-440); Red Cell Distribution Width 20.7 % (13.2-15.2)
[2018-04-15] MEDS ORDERED: D50W (25GM) Syringe IV ONE ×4 (12:43→22:30)
[2018-04-15] MEDS: MAXIPIME/NS 1 GM/100 ML 1 GM/100 ML BAG IV SCH (12:56)
[2018-04-15] MEDS ORDERED: SODIUM BICARBONATE 150 MEQ in STERILE WATER 1,000 ML IV SCH (13:00)
[2018-04-15] MEDS ORDERED: VANCOMYCIN PHARMACY TO DOSE IV SCH (13:00)
[2018-04-15 13:40] LABS: Basophils % (Manual) 0 % (0.0-1.8); Eosinophils % (Manual) 0 % (0.0-4.3); Total Cells Counted 200
[2018-04-15 13:41] LABS: Anisocytosis 1+; Hypochromasia 1+; Large Platelets Few; Platelet Estimate Consistent w Auto
[2018-04-15 13:42] LABS: Target Cells 1+
[2018-04-15] MEDS ORDERED: SUBLIMAZE IV PRN (13:50)
[2018-04-15] MEDS: FLAGYL 500 MG/100 ML 500 MG/100 ML BAG IV SCH ×2 (14:23→22:24)
[2018-04-15] MEDS ORDERED: DURAGESIC TD SCH (15:00)
[2018-04-15] MEDS ORDERED: SODIUM BICARBONATE FEEDTUBE PRN (15:06)
[2018-04-15] MEDS ORDERED: PANCREAZE DR 10,500 UNIT FEEDTUBE PRN (15:06)
[2018-04-15] MEDS ORDERED: SIMPLE SYRUP FEEDTUBE PRN (15:06)
--- NOTE | 2018-04-15 15:28 | XRay Report ---
FINAL REPORT EXAM: XR ABDOMEN 1V AP HISTORY: Dobhoff placement COMPARISON: Chest radiograph performed on 04/14/2018 TECHNIQUE: Single frontal view of the lower chest and upper abdomen. FINDINGS: Weighted enteric tube with tip in the antrum of the stomach. Left-sided chest port with tip of the catheter in the superior vena cava. The cardiomediastinal silhouette is normal in appearance. Unchanged patchy opacities in the right mid to lower lung. There is a biliary stent in place. There is a nonobstructive bowel gas pattern, allowing for the limits of the film. IMPRESSION: Weighted enteric tube with tip in the antrum of the stomach.
[2018-04-15] MEDS ORDERED: HALDOL IV PRN (16:00)
[2018-04-15] MEDS ORDERED: NARCAN 0.4 MG/1 ML IV PRN (17:06)
[2018-04-15] MEDS ORDERED: ROXICODONE PO PRN (17:07)
--- NOTE | 2018-04-15 17:34 | Event Note ---
Date: 04/15/18 Patient re-evaluated. Multiorgan failure, Oliguria. Shock syndrome, serina palma son at bedside, explained condition he is made a call to discuss with family In the mean time will start on Hypoglycemia protocol initial Pain control with [employer] morphin pump While awaiting decision from family. Have also discussed with Pulmonary, if no decision about made in respect to hospice will need to Intubate patient. Patient has very poor prognosis considering all the above and primary diagnosis Palliative care/Hospice care more appropriate but will await family decision on how aggressive the management should be, although cannot wait too long for a decision.
[2018-04-15] MEDS: SODIUM BICARBONATE 150 MEQ in D5W 1,000 ML IV SCH ×2 (17:56→20:21)
[2018-04-15] MEDS ORDERED: SODIUM BICARBONATE IV ONE (18:00)
[2018-04-15] MEDS ORDERED: MORPHINE PCA 30MG/30ML IV SCH (18:00)
[2018-04-15] MEDS ORDERED: AMIDATE IV ONE (20:08)
[2018-04-15] MEDS ORDERED: VERSED IV ONE (20:08)
--- NOTE | 2018-04-15 21:55 | Emergency Department Report ---
Blank Doc - Documentation Documentation: I was asked by Dr. Kanwal Warner to intubate Ms Moyer for respiratory failure. Patient was already been tried by BiPAP but no response. Patient is not communicating. Following a Rapid sequence intubation guidelines and protocol patient received etomidate 20 mg IV and succinyl choline 100 mg IV. Using a Kacie 4 laryngoscope, the patient intubated with 7.5 mm endotracheal tube with no difficulties. ET tube confirmed by directly visualizing the tube passing through vocal cords, positive breath sounds on both sides and capnometry color change. Patient tolerated the procedure very well was no complications. This chest x-rays ordered for tube confirmation.
[2018-04-15] MEDS: SENOKOT S PO SCH (22:25)
--- NOTE | 2018-04-15 23:08 | XRay Report ---
FINAL REPORT PROCEDURE: XR CHEST 1V AP TECHNIQUE: Chest radiograph anteroposterior view. CPT 21238 HISTORY: intubation COMPARISON: Earlier the same day FINDINGS: Heart: Normal. Mediastinum/Vessels: Normal. Lungs/Pleural space: Right greater than left mid lung airspace opacities. Bony thorax: No acute osseous abnormality. Life support devices: Endotracheal tube extends to the right main bronchus and should be pulled back by at least 3.0 cm. Feeding tube extends to the stomach in the upper abdomen. Port on the left extends to the lower superior vena cava. IMPRESSION: Endotracheal tube extending to the right main bronchus should be pulled back. Feeding tube placement. Right greater than left infiltrates or edema.
[2018-04-15] MEDS ORDERED: NACL 0.9% 500 ML 500 ML IV SCH (23:45)
[2018-04-16] MEDS ORDERED: NACL 0.9% 500 ML 500 ML ONE
[2018-04-16] MEDS ORDERED: Vasostrict 20 UNIT in NACL 0.9% 100 ML IV SCH (01:00)
[2018-04-16] MEDS: Vasostrict 20 UNIT in NACL 0.9% 100 ML IV SCH ×2 (01:05→11:34)
--- NOTE | 2018-04-16 01:41 | Consultation ---
PULMONARY CRITICAL CARE NOTE CONSULTING PHYSICIAN: Dr. Warner. REASON FOR CONSULTATION: Critical care severe sepsis with shock. CHIEF COMPLAINT AND HISTORY OF PRESENT ILLNESS: As follows: The patient is a 52-year-old -[place] female with past medical history significant for metastatic lung cancer with mets to the lungs that I do know of and actually on home hospice prior to being brought into the Emergency Room by her daughter yesterday secondary to abdominal pain and generalized pain. She does have a chronic element, but that it is worse than usual. In the ER, she does complain of hurting all over. They were unable to see and meet her daughter. She was hypotensive. She did have a Port-A-Cath that is already in place. She was started on vasopressors, brought up to the intensive care unit. When I stopped by to see her in the Intensive Care Unit, she was actually initially pretty lethargic. She had been found to be hypoglycemic. Blood sugar as low as 9 when she was sent to the lab. She had just received D50, was beginning to wake up. When she did finally wake up, she responded appropriately, told me the number of fingers I showed up to her, followed some simple commands and finally admitted to being in pain. When I did palpate her abdomen, it actually made her scream a little bit. I do not have any history of nausea, vomiting or overt aspiration. She is not a current smoker. Remote history is unknown. That really is as much of the history of presentation as I have. PAST MEDICAL HISTORY: Metastatic colon cancer. PAST SURGICAL HISTORY: She has had I think hemicolectomy. She has right lower quadrant colostomy bag. She has had a cholecystectomy. She has had bilateral knee surgery and cataract surgery. MEDICATIONS: She was on at the time I stopped by to see her were reviewed. Pertinent medications included the following: Tylenol 650 mg p.o. q. 4 hours p.r.n. mild pain or fever, Maxipime 1 gram IV daily, Flagyl 500 mg IV q. 8 hours, morphine sulfate 1 mg IV q. 4 hours p.r.n. moderate pain, Levophed drip was going at 14 mcg per minute, Zofran 4 mg IV q. 4 hours p.r.n. nausea and vomiting. She had just been ordered a sodium bicarbonate drip D5W with 150 mEq sodium bicarbonate per liter at 75 mL per hour and vancomycin she received 1 gram dose. ALLERGIES: KETOROLAC AND MEPERIDINE. Nature of this allergy is unknown. DIET: Thin lady, cachectic lady, acute weight loss or gain history is unknown. FAMILY AND SOCIAL HISTORY: Lives in the community, I believe with her daughter. No current alcohol, tobacco, or illicit drug use or abuse. Remote history is unknown. There is a family history of hypertension. REVIEW OF SYSTEMS: Difficult to obtain secondary to the patient's medical and mental condition. Since she has been here, no gross hematochezia or melena, no gross hematuria, no hematemesis, no hemoptysis. She has a dry cough that is nonproductive. She is moaning in the room, presumably secondary to generalized pain. No new-onset seizures. No new-onset focal weakness. Complete review of systems obtained as best as I could. Pertinent positives and/or negatives as in body of history above; otherwise, noncontributory. PHYSICAL EXAMINATION: VITAL SIGNS: At presentation, she was afebrile, temperature 98.7 degrees Fahrenheit with a pulse of 72, respiratory rate as high as 37 in the ER, blood pressure as low as 73/42, oxygen sats were 99%, inspired oxygen concentration at that time was not recorded. When I stopped by to see her, her sats were 100% on 2 liters nasal cannula. GENERAL: Elderly-looking, chronically ill-looking, but middle-aged -[place] female, normocephalic, atraumatic, moaning in bed in mild respiratory distress with [id number] pain it seems. HEAD, EYES, EARS, NOSE AND THROAT: She did have scleral icterus. She is icteric. No conjunctival erythema. Oropharynx is dry, it is a Mallampati #2. No gross jugular venous distention. No palpable lymph nodes in the supraclavicular or submandibular lymph node chains. LUNGS: Auscultation of both lung beebe reveal significant for faint bilateral crackles and rales. No active wheezing. HEART: Heart sounds 1 and 2 are heard at the time of my evaluation. CARDIOVASCULAR: Regular tachycardia without rales, heaves, rubs or murmurs. ABDOMEN: Protuberant, soft, tender, mild to moderately tender to palpation. Bowel sounds are hyperactive. She has a right lower quadrant colostomy bag. No bleeding noted in the bag. No palpable hepatosplenomegaly grossly. EXTREMITIES: Right lower extremity with about 2+ pedal pitting edema. No pedal edema on the left lower extremity. Dorsalis pedis pulses were palpable bilaterally. NEUROLOGIC: Pupils are equal, round, about 3 mm, reactive to light. Extraocular muscle movements are intact. She moves all 4 extremities spontaneously. LABORATORY DATA: From my review are as follows: Admission white cell count 12,700, it is up to 43,700 this morning with a hemoglobin of 9.7, hematocrit of 29.5, platelet count was 55 at presentation down to 42. INR was 1.40. I have just ordered an arterial blood gas, which showed a pH of 7.16, pCO2 of 16, pO2 of 91 that was on room air. Serum sodium was 140 at presentation with a potassium of 4.0, chloride of 98, bicarbonate of 11, BUN 102, creatinine 6.5, glucose was 74. Total bilirubin was 12.5. AST 68, ALT 44, alkaline phosphatase at 1685. Albumin 2.2. Urinalysis positive for trace leukocyte esterase, 66 white cells per high power field, 4+ bacteria. Lactic acid level was 8.6, has gone up to 10. Serum carbon dioxide is down to 8. Glucose was as low as 9. Two sets of blood cultures have been drawn, no growth to date. CT scan was done of the abdomen and pelvis. I have reviewed the reports. Lung windows show metastatic lung disease in the bases. Likely metastatic malignancy in the liver, mass in the head of the pancreas, left adrenal mass. No ascites or free air. Bilateral inguinal adenopathy is present. No particular report of colitis. Chest x-ray has been reviewed. It also shows the metastatic pulmonary masses increasing in size since the last x-ray and there is a left subclavian central venous catheter with the tip in the superior vena cava. ASSESSMENT: 1. Severe sepsis with shock. 2. Acute kidney injury, possible prerenal element. 3. Metastatic colon cancer. 4. Leukocytosis, etiology unclear. 5. Lactic acidosis. 6. Anemia, microcytic. 7. Thrombocytopenia. 8. Severe metabolic acidosis. 9. Hyperbilirubinemia. 10. Possible urinary tract infection. 11. Acute encephalopathy. PLAN: I will attempt to reach out to her daughter. She is supposed to be coming here at 02:00 p.m. today for a family discussion. I do feel like at this point, comfort care should be the major direction of therapy. She looks pretty miserable. We will go ahead and try and see if I can improve her overall status. We will continue broad-spectrum anti-infective therapy. I believe Infectious Disease consultation has been placed. I will get a CRP level to aid with anti-infective de-escalation. Volume resuscitation will be continued. I will increase the D5 with bicarbonate to about 150 mL per hour to also compensate from the hypoglycemia, which is probably related to her liver failure. Hematology/Oncology evaluation will be requested to assist in particular with thrombocytopenia. She may well have a deep venous thrombosis. She is at high risk based on her immobility and malignancy. Bilateral lower extremity Dopplers will be ordered. Anticoagulation decisions will have to be carefully discussed with the family. For now, we will hold on anticoagulation. I will go ahead and place the feeding tube. Enteral nutrition will be the feeding modality of choice for now to get her some strength. We will also place a fentanyl patch on her while keeping a close eye on her ventilation. She is doing a good job trying to compensate for the severe metabolic acidosis, but all this time she is significantly acidotic. I will place her on bilevel positive air pressure ventilation therapy scheduled at bedtime with p.r.n. daytime use to assist with ventilation. Aspiration precautions of course will be maintained. GI evaluation will be at the behest of the attending physician. We will continue to trend the lactic acid levels. She will be placed on GI prophylaxis. Flu and pneumonia vaccination have been addressed per protocol. We will continue to titrate Levophed to keep mean arterial pressures greater than or equal to about 65 mmHg acutely. Nephrology evaluation was pending. She may be at risk for refeeding syndrome. I will go ahead and get a stat serum phosphorus level and the nutrition consult has been placed. Thank you very much for the consult. We will follow along and make further recommendations as picture progresses/becomes clearer. She is critically ill on life-sustaining interventions including the vasopressors at high risk for decompensation in the cardiovascular, respiratory, renal, gastroenterological systems including the risk of . At this time, I spent about 45-50 minutes of critical care time without overlap and excluding any procedural time that may be necessary. JOB# [id number] MEENA/STEPHY KENDRICK
[2018-04-16] MEDS: SODIUM BICARBONATE 150 MEQ in D5W 1,000 ML IV SCH (02:35)
[2018-04-16 02:53] LABS: Calcium 8.4 mg/dL (8.4-10.2); Mean Corpuscular HGB Conc 28 % (30-34); Mean Corpuscular Volume 87 fl (79-97)
[2018-04-16 02:56] LABS: Hematocrit 33.9 % (30.3-42.9); Mean Corpuscular Hemoglobin 24 pg (28-32); Red Cell Distribution Width 21.6 % (13.2-15.2)
[2018-04-16 02:57] LABS: Hemoglobin 9.5 gm/dl (10.1-14.3)
[2018-04-16] MEDS ORDERED: INTROPIN DRIP 800 MG/D5W 250 ML 800 MG/250 ML BAG IV SCH (03:00)
[2018-04-16] MEDS ORDERED: SODIUM BICARBONATE IV ONE (03:10)
[2018-04-16] MEDS ORDERED: ALBURX 25% (ALBUMIN) IV ONE (03:15)
[2018-04-16] MEDS: LEVOPHED DRIP 4 MG/NS 250 ML 4 MG/250 ML BAG IV SCH ×4 (04:00→13:30)
[2018-04-16 04:05] LABS: Band Neutrophils # (Manual) 2.8 K/mm3; Basophils % (Manual) 0 % (0.0-1.8); Eosinophils % (Manual) 0 % (0.0-4.3); Monocytes % (Manual) 3.5 % (0.0-7.3); Target Cells 1+; Total Cells Counted 200
[2018-04-16 04:06] LABS: Anisocytosis 1+; Platelet Count 37 K/mm3 (140-440); Platelet Estimate Appears Decreased
[2018-04-16] MEDS ORDERED: VANCOMYCIN 500 MG in NACL 0.9% 100 ML IV ONE (07:59)
--- NOTE | 2018-04-16 08:19 | Progress Note ---
Assessment and Plan Assessment and plan: Patient is a 52 yo woman with a history of metastatic colon cancer to liver and lymph node s/p resection and chemotherapy with a colostomy who recently moved to this area from [place] whom I discharged in February 2018 to home with hospice after blood loss anemia most likely complication from colon cancer who now presents to [facility] with abd pains. She was found to be hypotensive and started on Levophed IV resuscitative infusion. It appears she has septic shock. It appears she was taking out of hospice by daughter per chart. During the night , pt failed bipap and was intubated last night, 04/15/18. * 04/16/18 CT abd/pelvis wo contrast IMPRESSION: Bilateral pulmonary masses again noted suspicious for metastatic malignancy.. Liver is enlarged and heterogeneous with evidence of possible metastatic malignancy.. There has been a cholecystectomy. There is a stent in the common bile duct. The intrahepatic bile ducts are dilated.. There is a mass in the head of the pancreas suspicious for malignancy.. There is a left adrenal mass suspicious for malignancy.. There are no kidney stones or ureteral stones. There is no hydronephrosis.. There is a right lower quadrant colostomy. There is no bowel obstruction.. There is no ascites or free air.. There is bilateral inguinal lymphadenopathy. There is pelvic and retroperitoneal and mesenteric adenopathy suspicious for metastatic malignancy.. * pCXR IMPRESSION: Extensive bilateral airspace disease suspicious for bilateral pneumonia. * post Intubation pCXR IMPRESSION: Endotracheal tube extending to the right main bronchus should be pulled back. Feeding tube placement. Right greater than left infiltrates or edema. -Septic shock with multi system organ failure, multiple etiologies per ID: treat with broad spectrum antibiotics and vasopressors. -Acute hypoxic respiratory failure: Mechanical ventilatory support. -Metastatic Colon cancer: poor prognosis -Acute renal failure, ATN with hypotension and vasomotor nephropathy, poa: treat with resuscitative IVF, repeat levels, Recreation Assistant, Dr. Donovan is following. -Sepsis with Bilateral Aspiration Pneumonia: treat with IV abx -Suspect Severe protein calorie malnutrition, poa: consult Plier Worker -Acute blood loss anemia from fungating mass at the stomy site most likely the colon cancer protruding outside of the stomach wall which is actively bleeding. -DVT prophylaxis: scd only due to GI Bleed with worsening anemia Family meeting done with daughter Pam and patient sister, brother and nephrew with Aunt on speaker phone. Dr. Ledesma and Dr. Uribe were in attendance. I conveyed to family that patient is actively dying. grave prognosis. Patient is maxed out on levophed, Vasopressin and dopamine is being triated up. Patient has agonal breathing and comatose. She need additional central line but plt is only 37 will transfuse plt and blood for the fungating bleeding mass CCT 34 minutes History Interval history: Patient seen and examined. Follow-up on current diagnosis of shock and respiratory failure. Overnight uneventful. Imaging, nursing note, chart, labs and old chart reviewed. Discussed with staff. Hospitalist Physical - Physical exam Narrative exam: GEN: critcial ill, not on sedation HEENT: ET in place NECK: supple, CVS/HEART: regular, normal S1S2, pulses present bilaterally CHEST/LUNGS: diminished, Symmetrical chest expansion, +air entry bilaterally GI/Abdomen: abnormal, fungating mass protuding out of the side of the stoma, it is bleeding, most likely the colon cancer /Bladder: no suprapubic tenderness, no CVA or paraspinal tenderness EXT/Skin: poor skin turgor, MSK: Intubated Neuro: intubated Psych: intubated - Constitutional Vitals: Temp Pulse Resp BP Pulse Ox 96.8 F L 94 H 16 98/54 100 04/16/18 04:00 04/16/18 06:30 04/16/18 06:45 04/16/18 06:00 04/16/18 06:45 Results - Labs CBC & Chem 7: 04/16/18 02:19 04/16/18 02:19 Labs: Laboratory Last Values WBC 62.4 K/mm3 (4.5-11.0) H* 04/16/18 02:19 RBC 3.90 M/mm3 (3.65-5.03) 04/16/18 02:19 Hgb 9.5 gm/dl (10.1-14.3) L 04/16/18 02:19 Hct 33.9 % (30.3-42.9) 04/16/18 02:19 MCV 87 fl (79-97) 04/16/18 02:19 MCH 24 pg (28-32) L 04/16/18 02:19 MCHC 28 % (30-34) L 04/16/18 02:19 RDW 21.6 % (13.2-15.2) H 04/16/18 02:19 Plt Count 37 K/mm3 (140-440) L 04/16/18 02:19 Lymph % (Auto) Ortho Rn 04/16/18 02:19 Barnes % (Auto) Ortho Rn 04/16/18 02:19 Eos % (Auto) Ortho Rn 04/16/18 02:19 Baso % (Auto) Ortho Rn 04/16/18 02:19 Lymph # Ortho Rn 04/16/18 02:19 Barnes # Ortho Rn 04/16/18 02:19 Eos # Ortho Rn 04/16/18 02:19 Baso # Ortho Rn 04/16/18 02:19 Add Manual Diff Complete 04/16/18 02:19 Total Counted 200 04/16/18 02:19 Seg Neutrophils % Ortho Rn 04/16/18 02:19 Seg Neuts % (Manual) 91.0 % (40.0-70.0) H 04/16/18 02:19 Band Neutrophils % 4.5 % 04/16/18 02:19 Lymphocytes % (Manual) 1.0 % (13.4-35.0) L 04/16/18 02:19 Reactive Lymphs % (Man) 0 % 04/16/18 02:19 Monocytes % (Manual) 3.5 % (0.0-7.3) 04/16/18 02:19 Eosinophils % (Manual) 0 % (0.0-4.3) 04/16/18 02:19 Basophils % (Manual) 0 % (0.0-1.8) 04/16/18 02:19 Metamyelocytes % 0 % 04/16/18 02:19 Myelocytes % 0 % 04/16/18 02:19 Promyelocytes % 0 % 04/16/18 02:19 Blast Cells % 0 % 04/16/18 02:19 Nucleated RBC % 1.0 % (0.0-0.9) H 04/16/18 02:19 Seg Neutrophils # Ortho Rn 04/16/18 02:19 Seg Neutrophils # Man 56.8 K/mm3 (1.8-7.7) H 04/16/18 02:19 Band Neutrophils # 2.8 K/mm3 04/16/18 02:19 Lymphocytes # (Manual) 0.6 K/mm3 (1.2-5.4) L 04/16/18 02:19 Abs React Lymphs (Man) 0.0 K/mm3 04/16/18 02:19 Monocytes # (Manual) 2.2 K/mm3 (0.0-0.8) H 04/16/18 02:19 Eosinophils # (Manual) 0.0 K/mm3 (0.0-0.4) 04/16/18 02:19 Basophils # (Manual) 0.0 K/mm3 (0.0-0.1) 04/16/18 02:19 Metamyelocytes # 0.0 K/mm3 04/16/18 02:19 Myelocytes # 0.0 K/mm3 04/16/18 02:19 Promyelocytes # 0.0 K/mm3 04/16/18 02:19 Blast Cells # 0.0 K/mm3 04/16/18 02:19 Pathologist Review 04/15/18 11:40 WBC Morphology Not Reportable 04/16/18 02:19 Hypersegmented Neuts Not Reportable 04/16/18 02:19 Hyposegmented Neuts Not Reportable 04/16/18 02:19 Hypogranular Neuts Not Reportable 04/16/18 02:19 Smudge Cells Not Reportable 04/16/18 02:19 Toxic Granulation Not Reportable 04/16/18 02:19 Toxic Vacuolation Not Reportable 04/16/18 02:19 Dohle Bodies Not Reportable 04/16/18 02:19 Pelger-Huet Anomaly Not Reportable 04/16/18 02:19 Mary Rods Not Reportable 04/16/18 02:19 Platelet Estimate Appears decreased 04/16/18 02:19 Clumped Platelets Not Reportable 04/16/18 02:19 Plt Clumps, EDTA Not Reportable 04/16/18 02:19 Large Platelets Not Reportable 04/16/18 02:19 Giant Platelets Not Reportable 04/16/18 02:19 Platelet Satelliting Not Reportable 04/16/18 02:19 Plt Morphology Comment Not Reportable 04/16/18 02:19 RBC Morphology Not Reportable 04/16/18 02:19 Dimorphic RBCs Not Reportable 04/16/18 02:19 Polychromasia Not Reportable 04/16/18 02:19 Hypochromasia Not Reportable 04/16/18 02:19 Poikilocytosis Not Reportable 04/16/18 02:19 Anisocytosis 1+ 04/16/18 02:19 Microcytosis Not Reportable 04/16/18 02:19 Macrocytosis Not Reportable 04/16/18 02:19 Spherocytes Not Reportable 04/16/18 02:19 Pappenheimer Bodies Not Reportable 04/16/18 02:19 Sickle Cells Not Reportable 04/16/18 02:19 Target Cells 1+ 04/16/18 02:19 Tear Drop Cells Not Reportable 04/16/18 02:19 Ovalocytes Not Reportable 04/16/18 02:19 Helmet Cells Not Reportable 04/16/18 02:19 [place] Bodies Not Reportable 04/16/18 02:19 [place] Rings Not Reportable 04/16/18 02:19 Lili Cells Not Reportable 04/16/18 02:19 Bite Cells Not Reportable 04/16/18 02:19 Crenated Cell Not Reportable 04/16/18 02:19 Elliptocytes Not Reportable 04/16/18 02:19 Acanthocytes (Spur) Not Reportable 04/16/18 02:19 Rouleaux Not Reportable 04/16/18 02:19 Hemoglobin C Crystals Not Reportable 04/16/18 02:19 Schistocytes Not Reportable 04/16/18 02:19 Malaria parasites Not Reportable 04/16/18 02:19 Emanuel Bodies Not Reportable 04/16/18 02:19 Hem Pathologist Commnt No 04/16/18 02:19 PT 17.7 Sec. (12.2-14.9) H 04/15/18 06:47 INR 1.40 (0.87-1.13) H 04/15/18 06:47 POC ABG pH 6.973 (7.35-7.45) L 04/16/18 03:05 POC ABG pCO2 15.3 (35-45) L 04/16/18 03:05 POC ABG pO2 151 (80-105) H 04/16/18 03:05 POC ABG HCO3 3.6 04/16/18 03:05 POC ABG Total CO2 < 5 04/16/18 03:05 POC ABG O2 Sat 98 04/16/18 03:05 POC ABG Base Excess -28 04/16/18 03:05 FiO2 40 % 04/16/18 03:05 Sodium 141 mmol/L (137-145) 04/16/18 02:19 Potassium 4.6 mmol/L (3.6-5.0) 04/16/18 02:19 Chloride 99.1 mmol/L (98-107) 04/16/18 02:19 Carbon Dioxide 3 mmol/L (22-30) L* 04/16/18 02:19 Anion Gap 44 mmol/L 04/16/18 02:19 BUN 88 mg/dL (7-17) H 04/16/18 02:19 Creatinine 5.4 mg/dL (0.7-1.2) H 04/16/18 02:19 Estimated GFR 8 ml/min 04/16/18 02:19 BUN/Creatinine Ratio 16 % 04/16/18 02:19 Glucose 158 mg/dL (65-100) H 04/16/18 02:19 POC Glucose 118 (70-105) H 04/16/18 06:41 Lactic Acid 22.20 mmol/L (0.7-2.0) H* 04/16/18 06:33 Calcium 8.4 mg/dL (8.4-10.2) 04/16/18 02:19 Total Bilirubin 12.50 mg/dL (0.1-1.2) H 04/14/18 23:52 AST 68 units/L (5-40) H 04/14/18 23:52 ALT 44 units/L (7-56) 04/14/18 23:52 Alkaline Phosphatase 1685 units/L (35-129) H 04/14/18 23:52 C-Reactive Protein 21.40 mg/dL (0.00-1.30) H 04/15/18 16:33 Total Protein 6.7 g/dL (6.3-8.2) 04/14/18 23:52 Albumin 2.2 g/dL (3.9-5) L 04/14/18 23:52 Albumin/Globulin Ratio 0.5 % 04/14/18 23:52 Lipase 63 units/L (13-60) H 04/14/18 23:52 Urine Color Neha (Yellow) 04/15/18 05:49 Urine Turbidity Cloudy (Clear) 04/15/18 05:49 Urine pH 5.0 (5.0-7.0) 04/15/18 05:49 Ur Specific [place] 1.021 (1.003-1.030) 04/15/18 05:49 Urine Protein 100 mg/dl mg/dL (Negative) 04/15/18 05:49 Urine Glucose (UA) 50 mg/dL (Negative) 04/15/18 05:49 Urine Ketones Tr mg/dL (Negative) 04/15/18 05:49 Urine Blood Mod (Negative) 04/15/18 05:49 Urine Nitrite Neg (Negative) 04/15/18 05:49 Urine Bilirubin Sm (Negative) 04/15/18 05:49 Urine Ictotest Positive (Negative) 04/15/18 05:49 Urine Urobilinogen < 2.0 mg/dL (<2.0) 04/15/18 05:49 Ur Leukocyte Esterase Tr (Negative) 04/15/18 05:49 Urine WBC (Auto) 66.0 /HPF (0.0-6.0) H 04/15/18 05:49 Urine RBC (Auto) 17.0 /HPF (0.0-6.0) 04/15/18 05:49 U Epithel Cells (Auto) 6.0 /HPF (0-13.0) 04/15/18 05:49 Urine Bacteria (Auto) 4+ /HPF (Negative) 04/15/18 05:49 Urine Mucus Few /HPF 04/15/18 05:49
--- NOTE | 2018-04-16 08:21 | Progress Note ---
Assessment and Plan 1. Acute kidney injury: Vasomotor / hemodynamic JEANNE superimposed on CKD stage 3 in the setting of hypotension / shock. CT negative for any hydronephrosis. Continue IV fluid bolus. Renal prognosis is guarded. 2. Lactic acidosis: Lactate continue to increase. IV bicarbonate drip. 3. Septic shock: On 3 different IV Vasopressors. 4. Respiratory failure: On vent. 5. Encephalopathy. 6. Metastatic colon cancer. Subjective Date of service: 04/16/18 Interval history: Patient was seen and examined at the bedside. Objective - Vital Signs Vital signs: Vital Signs - 12hr 04/15/18 04/15/18 04/15/18 20:30 20:44 20:45 Temperature Pulse Rate 87 100 H Pulse Rate [ 90 90 None] Respiratory 19 22 20 Rate Respiratory Rate [Abdomen] Blood Pressure 114/50 114/50 99/48 O2 Sat by Pulse 83 L 99 Oximetry 04/15/18 04/15/18 04/15/18 20:46 21:00 21:12 Temperature Pulse Rate 99 H 93 H 92 H Pulse Rate [ 88 None] Respiratory 22 12 21 Rate Respiratory Rate [Abdomen] Blood Pressure 114/50 92/50 114/50 O2 Sat by Pulse 99 Oximetry 04/15/18 04/15/18 04/15/18 21:15 21:16 21:30 Temperature Pulse Rate 91 H 108 H Pulse Rate [ None] Respiratory 20 20 14 Rate Respiratory Rate [Abdomen] Blood Pressure 114/50 114/50 O2 Sat by Pulse Oximetry 04/15/18 04/15/18 04/15/18 21:35 21:46 22:00 Temperature Pulse Rate 81 77 Pulse Rate [ 88 None] Respiratory 12 25 H Rate Respiratory Rate [Abdomen] Blood Pressure 92/50 114/50 114/50 O2 Sat by Pulse 100 90 Oximetry 04/15/18 04/15/18 04/15/18 22:15 22:30 22:45 Temperature Pulse Rate 80 84 85 Pulse Rate [ None] Respiratory 25 H 15 11 L Rate Respiratory Rate [Abdomen] Blood Pressure 115/65 115/65 125/80 O2 Sat by Pulse 95 95 100 Oximetry 04/15/18 04/15/18 04/15/18 22:59 23:00 23:15 Temperature Pulse Rate 88 Pulse Rate [ 88 None] Respiratory 12 12 20 Rate Respiratory Rate [Abdomen] Blood Pressure 92/50 115/65 O2 Sat by Pulse 99 Oximetry 04/15/18 04/15/18 04/15/18 23:16 23:25 23:30 Temperature Pulse Rate 89 90 92 H Pulse Rate [ None] Respiratory 13 15 Rate Respiratory Rate [Abdomen] Blood Pressure 115/65 92/50 115/65 O2 Sat by Pulse 100 100 99 Oximetry 04/15/18 04/16/18 04/16/18 23:46 00:00 00:15 Temperature 96.8 F L Pulse Rate 91 H 91 H 91 H Pulse Rate [ None] Respiratory 14 20 15 Rate Respiratory Rate [Abdomen] Blood Pressure 115/65 115/65 111/66 O2 Sat by Pulse 100 100 99 Oximetry 04/16/18 04/16/18 04/16/18 00:27 00:30 00:42 Temperature Pulse Rate 92 H Pulse Rate [ 91 H 93 H None] Respiratory 16 15 Rate Respiratory Rate [Abdomen] Blood Pressure 80/42 121/75 80/42 O2 Sat by Pulse 100 100 Oximetry 04/16/18 04/16/18 04/16/18 00:46 00:57 01:00 Temperature Pulse Rate 93 H 93 H Pulse Rate [ 93 H None] Respiratory 16 15 16 Rate Respiratory Rate [Abdomen] Blood Pressure 121/75 80/42 121/75 O2 Sat by Pulse 100 100 100 Oximetry 04/16/18 04/16/18 04/16/18 01:05 01:15 01:20 Temperature Pulse Rate 88 Pulse Rate [ 91 H 88 None] Respiratory 15 16 15 Rate Respiratory Rate [Abdomen] Blood Pressure 98/42 131/80 98/42 O2 Sat by Pulse 100 100 100 Oximetry 04/16/18 04/16/18 04/16/18 01:28 01:30 01:35 Temperature Pulse Rate 97 H 86 Pulse Rate [ 87 None] Respiratory 16 16 Rate Respiratory Rate [Abdomen] Blood Pressure 140/85 98/42 O2 Sat by Pulse 100 100 Oximetry 04/16/18 04/16/18 04/16/18 01:45 02:00 02:16 Temperature Pulse Rate 88 88 90 Pulse Rate [ None] Respiratory 16 16 16 Rate Respiratory Rate [Abdomen] Blood Pressure O2 Sat by Pulse 100 100 100 Oximetry 04/16/18 04/16/18 04/16/18 02:30 02:46 03:00 Temperature Pulse Rate 93 H 93 H 95 H Pulse Rate [ None] Respiratory 15 15 15 Rate Respiratory Rate [Abdomen] Blood Pressure O2 Sat by Pulse 100 100 100 Oximetry 04/16/18 04/16/18 04/16/18 03:16 03:19 03:20 Temperature 96.8 F L Pulse Rate 94 H 94 H 98 H Pulse Rate [ 98 H None] Respiratory 16 15 Rate Respiratory Rate [Abdomen] Blood Pressure 145/83 98/42 90/44 O2 Sat by Pulse 100 100 100 Oximetry 04/16/18 04/16/18 04/16/18 03:30 03:33 03:35 Temperature 97.8 F 96.8 F L Pulse Rate 97 H Pulse Rate [ 98 H None] Respiratory 17 15 Rate Respiratory Rate [Abdomen] Blood Pressure 145/83 98/42 O2 Sat by Pulse 100 100 Oximetry 04/16/18 04/16/18 04/16/18 03:46 04:00 04:06 Temperature 96.8 F L Pulse Rate 96 H 97 H 97 H Pulse Rate [ 98 H None] Respiratory 16 16 Rate Respiratory Rate [Abdomen] Blood Pressure 92/55 O2 Sat by Pulse 100 100 Oximetry 04/16/18 04/16/18 04/16/18 04:15 04:16 04:20 Temperature Pulse Rate 98 H Pulse Rate [ 98 H None] Respiratory 15 16 16 Rate Respiratory Rate [Abdomen] Blood Pressure 94/55 O2 Sat by Pulse 100 100 97 Oximetry 04/16/18 04/16/18 04/16/18 04:30 04:46 05:00 Temperature Pulse Rate 106 H 104 H 101 H Pulse Rate [ 98 H None] Respiratory 17 17 16 Rate Respiratory Rate [Abdomen] Blood Pressure 94/55 O2 Sat by Pulse 100 100 100 Oximetry 04/16/18 04/16/18 04/16/18 05:10 05:16 05:23 Temperature Pulse Rate 100 H Pulse Rate [ 100 H None] Respiratory 16 16 Rate Respiratory 16 Rate [Abdomen] Blood Pressure 92/58 O2 Sat by Pulse 100 100 Oximetry 04/16/18 04/16/18 04/16/18 05:30 05:46 06:00 Temperature Pulse Rate 98 H 96 H 95 H Pulse Rate [ 100 H None] Respiratory 16 16 15 Rate Respiratory Rate [Abdomen] Blood Pressure 98/54 O2 Sat by Pulse 100 100 100 Oximetry 04/16/18 04/16/18 04/16/18 06:16 06:30 06:45 Temperature Pulse Rate 93 H 94 H Pulse Rate [ None] Respiratory 15 16 16 Rate Respiratory Rate [Abdomen] Blood Pressure O2 Sat by Pulse 100 100 100 Oximetry - General Appearance General appearance: well-developed, cachectic, chronically ill, intubated, other (on vent) EENT: ATNC Neck: supple Respiratory: Present: Other (coarse breath sounds) Cardiology: regular, S1S2, no murmurs Gastrointestinal: no tenderness, other (ostomy noted) Integumentary: no rash, warm and dry Neurologic: obtunded Musculoskeletal: other (no edema) - Lab 04/16/18 02:19 04/16/18 14:30 Most recent lab results Calcium 8.4 mg/dL (8.4-10.2) 04/16/18 02:19
[2018-04-16 08:48] VITALS: BP 71/37
[2018-04-16] MEDS ORDERED: PEPCID IV SCH (10:00)
--- NOTE | 2018-04-16 10:50 | Progress Note ---
Assessment and Plan Cultures: 04/15/2018 blood culture: No growth thus far A/P: 52-year-old female with metastatic colon cancer status post colostomy who was on hospice now admitted with: 1) Septic shock, likely secondary to cholestatic jaundice, possible acute cholangitis, severe lactic acidosis: This is likely secondary to obstruction from malignancy. Her alkaline phosphatase and bilirubin are significantly elevated compared to her February 2018 admission. Patient also has evidence of lactic acidosis, shock requiring multiple pressors. Remains extremely critical with a guarded prognosis, will continue Cefepime, Flagyl and Vancomycin. 2) Acute renal failure: Renally dose abx. Recs: -continue renally adjusted Cefepime, Flagyl and Vancomycin -Prognosis is extremely poor, awaiting family decision. Please call with questions. Will follow along. MD [facility] C: [phone] O: [phone] F: [phone] Subjective Date of service: 04/16/18 Principal diagnosis: Septic shock Interval history: Since last seen by me, patient was intubated, started on mechanical ventilation. Remains extremely critical requiring multiple pressors. Objective - Exam Narrative Exam: Physical Exam: Constitutional: sedated, intubated. Head, Ears, Nose: Normocephalic, atraumatic. External ears, nose normal Eyes: Conjunctivae/corneas clear. Icterus + Neck: Supple, no meningeal signs Oral: intubated. Cardiovascular: S1, S2 normal. Respiratory: bilateral rhonchi +, no wheeze. GI: mildly distended, bowel sounds +, No peritoneal signs. colostomy + in RLQ. Musculoskeletal: No pedal edema. Skin: No rash or abscess Hem/Lymphatic: No palpable cervical or supraclavicular nodes. No lymphangitis Psych: no agitation, sedated Neurological: sedated, on the vent, exam limited. - Constitutional Vitals: Vital Signs Temp Pulse Resp BP Pulse Ox 94.4 F L 105 H 16 71/37 100 04/16/18 08:00 04/16/18 10:16 04/16/18 10:16 04/16/18 10:16 04/16/18 10:16 Temperature -Last 24 Hours Temperature 94.4 F Temperature 96.8 F Temperature 96.8 F Temperature 97.8 F Temperature 96.8 F Temperature 96.8 F Temperature 96.8 F Temperature 98.9 F - Labs CBC & Chem 7: 04/16/18 02:19 04/16/18 02:19 Labs: Abnormal lab results 04/15/18 04/15/18 04/15/18 Range/Units 11:40 11:40 11:40 WBC 43.7 H* (4.5-11.0) K/mm3 Hgb 9.2 L (10.1-14.3) gm/dl Hct 29.5 L (30.3-42.9) % MCV 78 L (79-97) fl MCH 24 L (28-32) pg MCHC (30-34) % RDW 20.7 H (13.2-15.2) % Plt Count 42 L (140-440) K/mm3 Seg Neuts % (Manual) 97.5 H (40.0-70.0) % Lymphocytes % (Manual) 1.5 L (13.4-35.0) % Nucleated RBC % (0.0-0.9) % Seg Neutrophils # Man 42.6 H (1.8-7.7) K/mm3 Lymphocytes # (Manual) 0.7 L (1.2-5.4) K/mm3 Monocytes # (Manual) (0.0-0.8) K/mm3 POC ABG pH (7.35-7.45) POC ABG pCO2 (35-45) POC ABG pO2 (80-105) Carbon Dioxide 8 L* (22-30) mmol/L BUN 92 H (7-17) mg/dL Creatinine 5.7 H (0.7-1.2) mg/dL Glucose 9 L* (65-100) mg/dL POC Glucose (70-105) Lactic Acid 10.00 H* (0.7-2.0) mmol/L Calcium 8.0 L (8.4-10.2) mg/dL C-Reactive Protein (0.00-1.30) mg/dL 04/15/18 04/15/18 04/15/18 Range/Units 12:39 13:19 14:40 WBC (4.5-11.0) K/mm3 Hgb (10.1-14.3) gm/dl Hct (30.3-42.9) % MCV (79-97) fl MCH (28-32) pg MCHC (30-34) % RDW (13.2-15.2) % Plt Count (140-440) K/mm3 Seg Neuts % (Manual) (40.0-70.0) % Lymphocytes % (Manual) (13.4-35.0) % Nucleated RBC % (0.0-0.9) % Seg Neutrophils # Man (1.8-7.7) K/mm3 Lymphocytes # (Manual) (1.2-5.4) K/mm3 Monocytes # (Manual) (0.0-0.8) K/mm3 POC ABG pH 7.156 L (7.35-7.45) POC ABG pCO2 15.7 L (35-45) POC ABG pO2 (80-105) Carbon Dioxide (22-30) mmol/L BUN (7-17) mg/dL Creatinine (0.7-1.2) mg/dL Glucose (65-100) mg/dL POC Glucose < 40 L 52 L (70-105) Lactic Acid (0.7-2.0) mmol/L Calcium (8.4-10.2) mg/dL C-Reactive Protein (0.00-1.30) mg/dL 04/15/18 04/15/18 04/15/18 Range/Units 15:17 16:33 16:35 WBC (4.5-11.0) K/mm3 Hgb (10.1-14.3) gm/dl Hct (30.3-42.9) % MCV (79-97) fl MCH (28-32) pg MCHC (30-34) % RDW (13.2-15.2) % Plt Count (140-440) K/mm3 Seg Neuts % (Manual) (40.0-70.0) % Lymphocytes % (Manual) (13.4-35.0) % Nucleated RBC % (0.0-0.9) % Seg Neutrophils # Man (1.8-7.7) K/mm3 Lymphocytes # (Manual) (1.2-5.4) K/mm3 Monocytes # (Manual) (0.0-0.8) K/mm3 POC ABG pH (7.35-7.45) POC ABG pCO2 (35-45) POC ABG pO2 (80-105) Carbon Dioxide (22-30) mmol/L BUN (7-17) mg/dL Creatinine (0.7-1.2) mg/dL Glucose (65-100) mg/dL POC Glucose 117 H (70-105) Lactic Acid 13.90 H* (0.7-2.0) mmol/L Calcium (8.4-10.2) mg/dL C-Reactive Protein 21.40 H (0.00-1.30) mg/dL 04/15/18 04/15/18 04/15/18 Range/Units 17:18 20:51 22:14 WBC (4.5-11.0) K/mm3 Hgb (10.1-14.3) gm/dl Hct (30.3-42.9) % MCV (79-97) fl MCH (28-32) pg MCHC (30-34) % RDW (13.2-15.2) % Plt Count (140-440) K/mm3 Seg Neuts % (Manual) (40.0-70.0) % Lymphocytes % (Manual) (13.4-35.0) % Nucleated RBC % (0.0-0.9) % Seg Neutrophils # Man (1.8-7.7) K/mm3 Lymphocytes # (Manual) (1.2-5.4) K/mm3 Monocytes # (Manual) (0.0-0.8) K/mm3 POC ABG pH 7.105 L 7.121 L (7.35-7.45) POC ABG pCO2 13.7 L 15.5 L (35-45) POC ABG pO2 109 H 112 H (80-105) Carbon Dioxide (22-30) mmol/L BUN (7-17) mg/dL Creatinine (0.7-1.2) mg/dL Glucose (65-100) mg/dL POC Glucose < 40 L (70-105) Lactic Acid (0.7-2.0) mmol/L Calcium (8.4-10.2) mg/dL C-Reactive Protein (0.00-1.30) mg/dL 04/15/18 04/15/18 04/15/18 Range/Units 22:23 22:23 22:41 WBC (4.5-11.0) K/mm3 Hgb (10.1-14.3) gm/dl Hct (30.3-42.9) % MCV (79-97) fl MCH (28-32) pg MCHC (30-34) % RDW (13.2-15.2) % Plt Count (140-440) K/mm3 Seg Neuts % (Manual) (40.0-70.0) % Lymphocytes % (Manual) (13.4-35.0) % Nucleated RBC % (0.0-0.9) % Seg Neutrophils # Man (1.8-7.7) K/mm3 Lymphocytes # (Manual) (1.2-5.4) K/mm3 Monocytes # (Manual) (0.0-0.8) K/mm3 POC ABG pH (7.35-7.45) POC ABG pCO2 (35-45) POC ABG pO2 (80-105) Carbon Dioxide (22-30) mmol/L BUN (7-17) mg/dL Creatinine (0.7-1.2) mg/dL Glucose 222 H (65-100) mg/dL POC Glucose 183 H (70-105) Lactic Acid 18.20 H* (0.7-2.0) mmol/L Calcium (8.4-10.2) mg/dL C-Reactive Protein (0.00-1.30) mg/dL 04/16/18 04/16/18 04/16/18 Range/Units 00:13 01:17 02:03 WBC (4.5-11.0) K/mm3 Hgb (10.1-14.3) gm/dl Hct (30.3-42.9) % MCV (79-97) fl MCH (28-32) pg MCHC (30-34) % RDW (13.2-15.2) % Plt Count (140-440) K/mm3 Seg Neuts % (Manual) (40.0-70.0) % Lymphocytes % (Manual) (13.4-35.0) % Nucleated RBC % (0.0-0.9) % Seg Neutrophils # Man (1.8-7.7) K/mm3 Lymphocytes # (Manual) (1.2-5.4) K/mm3 Monocytes # (Manual) (0.0-0.8) K/mm3 POC ABG pH (7.35-7.45) POC ABG pCO2 (35-45) POC ABG pO2 (80-105) Carbon Dioxide (22-30) mmol/L BUN (7-17) mg/dL Creatinine (0.7-1.2) mg/dL Glucose (65-100) mg/dL POC Glucose 191 H 192 H 191 H (70-105) Lactic Acid (0.7-2.0) mmol/L Calcium (8.4-10.2) mg/dL C-Reactive Protein (0.00-1.30) mg/dL 04/16/18 04/16/18 04/16/18 Range/Units 02:19 02:19 02:19 WBC 62.4 H* (4.5-11.0) K/mm3 Hgb 9.5 L (10.1-14.3) gm/dl Hct (30.3-42.9) % MCV (79-97) fl MCH 24 L (28-32) pg MCHC 28 L (30-34) % RDW 21.6 H (13.2-15.2) % Plt Count 37 L (140-440) K/mm3 Seg Neuts % (Manual) 91.0 H (40.0-70.0) % Lymphocytes % (Manual) 1.0 L (13.4-35.0) % Nucleated RBC % 1.0 H (0.0-0.9) % Seg Neutrophils # Man 56.8 H (1.8-7.7) K/mm3 Lymphocytes # (Manual) 0.6 L (1.2-5.4) K/mm3 Monocytes # (Manual) 2.2 H (0.0-0.8) K/mm3 POC ABG pH (7.35-7.45) POC ABG pCO2 (35-45) POC ABG pO2 (80-105) Carbon Dioxide 3 L* (22-30) mmol/L BUN 88 H (7-17) mg/dL Creatinine 5.4 H (0.7-1.2) mg/dL Glucose 158 H (65-100) mg/dL POC Glucose (70-105) Lactic Acid 19.40 H* (0.7-2.0) mmol/L Calcium (8.4-10.2) mg/dL C-Reactive Protein (0.00-1.30) mg/dL 04/16/18 04/16/18 04/16/18 Range/Units 03:05 03:14 05:15 WBC (4.5-11.0) K/mm3 Hgb (10.1-14.3) gm/dl Hct (30.3-42.9) % MCV (79-97) fl MCH (28-32) pg MCHC (30-34) % RDW (13.2-15.2) % Plt Count (140-440) K/mm3 Seg Neuts % (Manual) (40.0-70.0) % Lymphocytes % (Manual) (13.4-35.0) % Nucleated RBC % (0.0-0.9) % Seg Neutrophils # Man (1.8-7.7) K/mm3 Lymphocytes # (Manual) (1.2-5.4) K/mm3 Monocytes # (Manual) (0.0-0.8) K/mm3 POC ABG pH 6.973 L (7.35-7.45) POC ABG pCO2 15.3 L (35-45) POC ABG pO2 151 H (80-105) Carbon Dioxide (22-30) mmol/L BUN (7-17) mg/dL Creatinine (0.7-1.2) mg/dL Glucose (65-100) mg/dL POC Glucose 180 H 137 H (70-105) Lactic Acid (0.7-2.0) mmol/L Calcium (8.4-10.2) mg/dL C-Reactive Protein (0.00-1.30) mg/dL 04/16/18 04/16/18 04/16/18 Range/Units 06:33 06:41 07:59 WBC (4.5-11.0) K/mm3 Hgb (10.1-14.3) gm/dl Hct (30.3-42.9) % MCV (79-97) fl MCH (28-32) pg MCHC (30-34) % RDW (13.2-15.2) % Plt Count (140-440) K/mm3 Seg Neuts % (Manual) (40.0-70.0) % Lymphocytes % (Manual) (13.4-35.0) % Nucleated RBC % (0.0-0.9) % Seg Neutrophils # Man (1.8-7.7) K/mm3 Lymphocytes # (Manual) (1.2-5.4) K/mm3 Monocytes # (Manual) (0.0-0.8) K/mm3 POC ABG pH (7.35-7.45) POC ABG pCO2 (35-45) POC ABG pO2 (80-105) Carbon Dioxide (22-30) mmol/L BUN (7-17) mg/dL Creatinine (0.7-1.2) mg/dL Glucose (65-100) mg/dL POC Glucose 118 H 122 H (70-105) Lactic Acid 22.20 H* (0.7-2.0) mmol/L Calcium (8.4-10.2) mg/dL C-Reactive Protein (0.00-1.30) mg/dL 04/16/18 04/16/18 Range/Units 09:08 09:15 WBC (4.5-11.0) K/mm3 Hgb (10.1-14.3) gm/dl Hct (30.3-42.9) % MCV (79-97) fl MCH (28-32) pg MCHC (30-34) % RDW (13.2-15.2) % Plt Count (140-440) K/mm3 Seg Neuts % (Manual) (40.0-70.0) % Lymphocytes % (Manual) (13.4-35.0) % Nucleated RBC % (0.0-0.9) % Seg Neutrophils # Man (1.8-7.7) K/mm3 Lymphocytes # (Manual) (1.2-5.4) K/mm3 Monocytes # (Manual) (0.0-0.8) K/mm3 POC ABG pH (7.35-7.45) POC ABG pCO2 (35-45) POC ABG pO2 (80-105) Carbon Dioxide (22-30) mmol/L BUN (7-17) mg/dL Creatinine (0.7-1.2) mg/dL Glucose (65-100) mg/dL POC Glucose 107 H (70-105) Lactic Acid 23.90 H* (0.7-2.0) mmol/L Calcium (8.4-10.2) mg/dL C-Reactive Protein (0.00-1.30) mg/dL
[2018-04-16] MEDS: SENOKOT S PO SCH (11:36)
[2018-04-16] MEDS: SODIUM CHLORIDE FLUSH SYRINGE 10 ML IV SCH (11:37)
[2018-04-16] MEDS: MAXIPIME/NS 1 GM/100 ML 1 GM/100 ML BAG IV SCH (11:41)
[2018-04-16] MEDS ORDERED: NACL 0.9% 500 ML 500 ML IV ONE (12:02)
--- NOTE | 2018-04-16 12:08 | Progress Note ---
Assessment and Plan Severe sepsis with shock. Acute kidney injury, possible prerenal element. Metastatic colon cancer. Leukocytosis, etiology unclear. Lactic acidosis. Anemia, microcytic. Thrombocytopenia. Severe metabolic acidosis. Hyperbilirubinemia. Possible urinary tract infection. Acute encephalopathy (Had extensive discussion with family including her lack of good response despite aggressive resuscitation; they are involved in a family meeting and will soon let us know. They have requested that i hold off on procedures for now and understand that she can decompensate ia a very short time) - continue full AC support acutely - hyperventilate for respiratory compensation - continue alkalanized IVF - continue D5W with bicarb also for persistent hypoglycemia - continue GI prophylaxis - wean oxygen to keep sats > 90% - NPO for now - wean vasopressors to keep MAP > 65 mmHg - VAP bundle addressed - continue empiric broad spectrum AB's - continue to follow cultures (All NGTD) - continue bronchodilators with pulm hygiene per RT - ETT pulled back after initial intubation and good bilateral breath sounds - continue other care per attending / other consultants The high probability of a clinically significant, sudden or life-threatening deterioration of the [respiratory, cardiac, neurology] system(s) required my full and direct attention, intervention and personal management. The aggregate critical care time was [45] minutes without overlap. Time includes spent on; [x] Data Review and interpretation [x] Patient assessment and monitoring of vital signs [x] Documentation [x] Medication orders and management Subjective Date of service: 04/16/18 Principal diagnosis: Severe sepsis with shock; JEANNE; Metastatic colon cancer; Thrombocytopenia Interval history: Patient is seen today for: Severe sepsis with shock; JEANNE; Metastatic colon cancer; Thrombocytopenia; Severe Leukocytosis; severe metabolic; Lactic acidosis ; Anemia (microcytic) Seen and examined at bedside; 24-hour events reviewed; nursing and respiratory care staff consulted; remained hypotensive overnight; now on dopamine, levophed and vasopressin; AMS is persistent; family discussions held for over 30 mins today; she remains with severe septic shock; some bleeding noted in colostomy bag now; remains coagulopathic Objective Vital Signs - 12hr 04/16/18 04/16/18 04/16/18 00:15 00:27 00:30 Temperature Pulse Rate 91 H 92 H Pulse Rate [ From Monitor] Pulse Rate [ 91 H None] Respiratory 15 16 Rate Respiratory Rate [Abdomen] Blood Pressure 111/66 80/42 121/75 O2 Sat by Pulse 99 100 Oximetry 04/16/18 04/16/18 04/16/18 00:42 00:46 00:57 Temperature Pulse Rate 93 H Pulse Rate [ From Monitor] Pulse Rate [ 93 H 93 H None] Respiratory 15 16 15 Rate Respiratory Rate [Abdomen] Blood Pressure 80/42 121/75 80/42 O2 Sat by Pulse 100 100 100 Oximetry 04/16/18 04/16/18 04/16/18 01:00 01:05 01:15 Temperature Pulse Rate 93 H 88 Pulse Rate [ From Monitor] Pulse Rate [ 91 H None] Respiratory 16 15 16 Rate Respiratory Rate [Abdomen] Blood Pressure 121/75 98/42 131/80 O2 Sat by Pulse 100 100 100 Oximetry 04/16/18 04/16/18 04/16/18 01:20 01:28 01:30 Temperature Pulse Rate 97 H 86 Pulse Rate [ From Monitor] Pulse Rate [ 88 None] Respiratory 15 16 Rate Respiratory Rate [Abdomen] Blood Pressure 98/42 140/85 O2 Sat by Pulse 100 100 Oximetry 04/16/18 04/16/18 04/16/18 01:35 01:45 02:00 Temperature Pulse Rate 88 88 Pulse Rate [ From Monitor] Pulse Rate [ 87 None] Respiratory 16 16 16 Rate Respiratory Rate [Abdomen] Blood Pressure 98/42 O2 Sat by Pulse 100 100 100 Oximetry 04/16/18 04/16/18 04/16/18 02:16 02:30 02:46 Temperature Pulse Rate 90 93 H 93 H Pulse Rate [ From Monitor] Pulse Rate [ None] Respiratory 16 15 15 Rate Respiratory Rate [Abdomen] Blood Pressure O2 Sat by Pulse 100 100 100 Oximetry 04/16/18 04/16/18 04/16/18 03:00 03:16 03:19 Temperature Pulse Rate 95 H 94 H 94 H Pulse Rate [ From Monitor] Pulse Rate [ None] Respiratory 15 16 Rate Respiratory Rate [Abdomen] Blood Pressure 145/83 98/42 O2 Sat by Pulse 100 100 100 Oximetry 04/16/18 04/16/18 04/16/18 03:20 03:30 03:33 Temperature 96.8 F L 97.8 F Pulse Rate 98 H 97 H Pulse Rate [ From Monitor] Pulse Rate [ 98 H None] Respiratory 15 17 Rate Respiratory Rate [Abdomen] Blood Pressure 90/44 145/83 O2 Sat by Pulse 100 100 Oximetry 04/16/18 04/16/18 04/16/18 03:35 03:46 04:00 Temperature 96.8 F L 96.8 F L Pulse Rate 96 H 97 H Pulse Rate [ From Monitor] Pulse Rate [ 98 H 98 H None] Respiratory 15 16 16 Rate Respiratory Rate [Abdomen] Blood Pressure 98/42 92/55 O2 Sat by Pulse 100 100 100 Oximetry 04/16/18 04/16/18 04/16/18 04:06 04:15 04:16 Temperature Pulse Rate 97 H 98 H Pulse Rate [ From Monitor] Pulse Rate [ 98 H None] Respiratory 15 16 Rate Respiratory Rate [Abdomen] Blood Pressure 94/55 O2 Sat by Pulse 100 100 Oximetry 04/16/18 04/16/18 04/16/18 04:20 04:30 04:46 Temperature Pulse Rate 106 H 104 H Pulse Rate [ From Monitor] Pulse Rate [ 98 H None] Respiratory 16 17 17 Rate Respiratory Rate [Abdomen] Blood Pressure 94/55 O2 Sat by Pulse 97 100 100 Oximetry 04/16/18 04/16/18 04/16/18 05:00 05:10 05:16 Temperature Pulse Rate 101 H 100 H Pulse Rate [ From Monitor] Pulse Rate [ 100 H None] Respiratory 16 16 16 Rate Respiratory Rate [Abdomen] Blood Pressure 92/58 O2 Sat by Pulse 100 100 100 Oximetry 04/16/18 04/16/18 04/16/18 05:23 05:30 05:46 Temperature Pulse Rate 98 H 96 H Pulse Rate [ From Monitor] Pulse Rate [ None] Respiratory 16 16 Rate Respiratory 16 Rate [Abdomen] Blood Pressure O2 Sat by Pulse 100 100 Oximetry 04/16/18 04/16/18 04/16/18 06:00 06:16 06:30 Temperature Pulse Rate 95 H 93 H 94 H Pulse Rate [ From Monitor] Pulse Rate [ 100 H None] Respiratory 15 15 16 Rate Respiratory Rate [Abdomen] Blood Pressure 98/54 O2 Sat by Pulse 100 100 100 Oximetry 04/16/18 04/16/18 04/16/18 06:45 06:46 07:00 Temperature Pulse Rate 94 H 95 H Pulse Rate [ From Monitor] Pulse Rate [ None] Respiratory 16 16 15 Rate Respiratory Rate [Abdomen] Blood Pressure 145/83 145/83 O2 Sat by Pulse 100 100 100 Oximetry 04/16/18 04/16/18 04/16/18 07:16 07:30 07:46 Temperature Pulse Rate 96 H 97 H 96 H Pulse Rate [ From Monitor] Pulse Rate [ None] Respiratory 16 15 16 Rate Respiratory Rate [Abdomen] Blood Pressure 145/83 145/83 145/83 O2 Sat by Pulse 100 100 100 Oximetry 04/16/18 04/16/18 04/16/18 08:00 08:16 08:30 Temperature 94.4 F L Pulse Rate 95 H 95 H 94 H Pulse Rate [ From Monitor] Pulse Rate [ None] Respiratory 16 16 15 Rate Respiratory Rate [Abdomen] Blood Pressure 56/24 56/24 56/24 O2 Sat by Pulse 100 100 100 Oximetry 04/16/18 04/16/18 04/16/18 08:46 09:00 09:16 Temperature Pulse Rate 103 H 103 H 105 H Pulse Rate [ From Monitor] Pulse Rate [ None] Respiratory 16 15 15 Rate Respiratory Rate [Abdomen] Blood Pressure 71/37 71/37 71/37 O2 Sat by Pulse 100 100 100 Oximetry 04/16/18 04/16/18 04/16/18 09:30 09:46 09:49 Temperature Pulse Rate 105 H 105 H 105 H Pulse Rate [ From Monitor] Pulse Rate [ None] Respiratory 16 16 Rate Respiratory Rate [Abdomen] Blood Pressure 71/37 71/37 O2 Sat by Pulse 100 95 99 Oximetry 04/16/18 04/16/18 04/16/18 10:00 10:16 10:30 Temperature Pulse Rate 105 H 105 H 105 H Pulse Rate [ 105 H From Monitor] Pulse Rate [ None] Respiratory 16 16 17 Rate Respiratory Rate [Abdomen] Blood Pressure 71/37 71/37 71/37 O2 Sat by Pulse 100 100 100 Oximetry 04/16/18 04/16/18 04/16/18 10:46 11:00 11:16 Temperature Pulse Rate 104 H 104 H 100 H Pulse Rate [ From Monitor] Pulse Rate [ None] Respiratory 15 16 17 Rate Respiratory Rate [Abdomen] Blood Pressure 71/37 71/37 71/37 O2 Sat by Pulse 100 100 Oximetry Constitutional: appears uncomfortable, other (Chronically ill looking middle aged AAF, normocephalic and on MVS) Eyes: non-icteric ENT: oropharynx dry, other (ETT 22 cm SARAH) Neck: supple, no lymphadenopathy, no JVD, other (No thyromegaly) Effort: very labored Ascultation: Bilateral: diminished breath sounds, rhonchi Percussion: Bilateral: not dull Cardiovascular: regular rate and rhythm, other (No R/M) Gastrointestinal: hypoactive bowel sounds, soft, tender (mildly), other ( Distended; No palpable HSM; bright red blood in colostomy bag ) Integumentary: other (poor turgor) Extremities: no cyanosis, pulses normal, no ischemia or petechiae, other (RL Ext edema) Neurologic: unable to assess Psychiatric: other (encephalopathic) CBC and BMP: 04/16/18 02:19 04/16/18 02:19 ABG, PT/INR, D-dimer: ABG POC ABG pH 6.973 (7.35-7.45) L 04/16/18 03:05 POC ABG pCO2 15.3 (35-45) L 04/16/18 03:05 POC ABG pO2 151 (80-105) H 04/16/18 03:05 POC ABG HCO3 3.6 04/16/18 03:05 POC ABG Total CO2 < 5 04/16/18 03:05 POC ABG O2 Sat 98 04/16/18 03:05 PT/INR, D-dimer PT 17.7 Sec. (12.2-14.9) H 04/15/18 06:47 INR 1.40 (0.87-1.13) H 04/15/18 06:47 Abnormal lab findings: Abnormal Labs 04/14/18 04/14/18 04/15/18 23:52 23:52 05:49 WBC 12.7 H Hgb 9.7 L Hct 29.5 L MCV 76 L MCH 25 L MCHC RDW 20.3 H Plt Count 55 L Seg Neuts % (Manual) 90.0 H Lymphocytes % (Manual) 10.0 L Nucleated RBC % 2.0 H Seg Neutrophils # Man 11.4 H Lymphocytes # (Manual) Monocytes # (Manual) PT INR POC ABG pH POC ABG pCO2 POC ABG pO2 Chloride 97.5 L Carbon Dioxide 11 L BUN 102 H Creatinine 6.5 H Glucose POC Glucose Lactic Acid Calcium Total Bilirubin 12.50 H AST 68 H Alkaline Phosphatase 1685 H C-Reactive Protein Albumin 2.2 L Lipase 63 H Urine WBC (Auto) 66.0 H 04/15/18 04/15/18 04/15/18 06:27 06:47 08:55 WBC Hgb Hct MCV MCH MCHC RDW Plt Count Seg Neuts % (Manual) Lymphocytes % (Manual) Nucleated RBC % Seg Neutrophils # Man Lymphocytes # (Manual) Monocytes # (Manual) PT 17.7 H INR 1.40 H POC ABG pH POC ABG pCO2 POC ABG pO2 Chloride Carbon Dioxide BUN Creatinine Glucose POC Glucose Lactic Acid 8.60 H* 9.40 H* Calcium Total Bilirubin AST Alkaline Phosphatase C-Reactive Protein Albumin Lipase Urine WBC (Auto) 04/15/18 04/15/18 04/15/18 11:40 11:40 11:40 WBC 43.7 H* Hgb 9.2 L Hct 29.5 L MCV 78 L MCH 24 L MCHC RDW 20.7 H Plt Count 42 L Seg Neuts % (Manual) 97.5 H Lymphocytes % (Manual) 1.5 L Nucleated RBC % Seg Neutrophils # Man 42.6 H Lymphocytes # (Manual) 0.7 L Monocytes # (Manual) PT INR POC ABG pH POC ABG pCO2 POC ABG pO2 Chloride Carbon Dioxide 8 L* BUN 92 H Creatinine 5.7 H Glucose 9 L* POC Glucose Lactic Acid 10.00 H* Calcium 8.0 L Total Bilirubin AST Alkaline Phosphatase C-Reactive Protein Albumin Lipase Urine WBC (Auto) 04/15/18 04/15/18 04/15/18 12:39 13:19 14:40 WBC Hgb Hct MCV MCH MCHC RDW Plt Count Seg Neuts % (Manual) Lymphocytes % (Manual) Nucleated RBC % Seg Neutrophils # Man Lymphocytes # (Manual) Monocytes # (Manual) PT INR POC ABG pH 7.156 L POC ABG pCO2 15.7 L POC ABG pO2 Chloride Carbon Dioxide BUN Creatinine Glucose POC Glucose < 40 L 52 L Lactic Acid Calcium Total Bilirubin AST Alkaline Phosphatase C-Reactive Protein Albumin Lipase Urine WBC (Auto) 04/15/18 04/15/18 04/15/18 15:17 16:33 16:35 WBC Hgb Hct MCV MCH MCHC RDW Plt Count Seg Neuts % (Manual) Lymphocytes % (Manual) Nucleated RBC % Seg Neutrophils # Man Lymphocytes # (Manual) Monocytes # (Manual) PT INR POC ABG pH POC ABG pCO2 POC ABG pO2 Chloride Carbon Dioxide BUN Creatinine Glucose POC Glucose 117 H Lactic Acid 13.90 H* Calcium Total Bilirubin AST Alkaline Phosphatase C-Reactive Protein 21.40 H Albumin Lipase Urine WBC (Auto) 04/15/18 04/15/18 04/15/18 17:18 20:51 22:14 WBC Hgb Hct MCV MCH MCHC RDW Plt Count Seg Neuts % (Manual) Lymphocytes % (Manual) Nucleated RBC % Seg Neutrophils # Man Lymphocytes # (Manual) Monocytes # (Manual) PT INR POC ABG pH 7.105 L 7.121 L POC ABG pCO2 13.7 L 15.5 L POC ABG pO2 109 H 112 H Chloride Carbon Dioxide BUN Creatinine Glucose POC Glucose < 40 L Lactic Acid Calcium Total Bilirubin AST Alkaline Phosphatase C-Reactive Protein Albumin Lipase Urine WBC (Auto) 04/15/18 04/15/18 04/15/18 22:23 22:23 22:41 WBC Hgb Hct MCV MCH MCHC RDW Plt Count Seg Neuts % (Manual) Lymphocytes % (Manual) Nucleated RBC % Seg Neutrophils # Man Lymphocytes # (Manual) Monocytes # (Manual) PT INR POC ABG pH POC ABG pCO2 POC ABG pO2 Chloride Carbon Dioxide BUN Creatinine Glucose 222 H POC Glucose 183 H Lactic Acid 18.20 H* Calcium Total Bilirubin AST Alkaline Phosphatase C-Reactive Protein Albumin Lipase Urine WBC (Auto) 04/16/18 04/16/18 04/16/18 00:13 01:17 02:03 WBC Hgb Hct MCV MCH MCHC RDW Plt Count Seg Neuts % (Manual) Lymphocytes % (Manual) Nucleated RBC % Seg Neutrophils # Man Lymphocytes # (Manual) Monocytes # (Manual) PT INR POC ABG pH POC ABG pCO2 POC ABG pO2 Chloride Carbon Dioxide BUN Creatinine Glucose POC Glucose 191 H 192 H 191 H Lactic Acid Calcium Total Bilirubin AST Alkaline Phosphatase C-Reactive Protein Albumin Lipase Urine WBC (Auto) 04/16/18 04/16/18 04/16/18 02:19 02:19 02:19 WBC 62.4 H* Hgb 9.5 L Hct MCV MCH 24 L MCHC 28 L RDW 21.6 H Plt Count 37 L Seg Neuts % (Manual) 91.0 H Lymphocytes % (Manual) 1.0 L Nucleated RBC % 1.0 H Seg Neutrophils # Man 56.8 H Lymphocytes # (Manual) 0.6 L Monocytes # (Manual) 2.2 H PT INR POC ABG pH POC ABG pCO2 POC ABG pO2 Chloride Carbon Dioxide 3 L* BUN 88 H Creatinine 5.4 H Glucose 158 H POC Glucose Lactic Acid 19.40 H* Calcium Total Bilirubin AST Alkaline Phosphatase C-Reactive Protein Albumin Lipase Urine WBC (Auto) 04/16/18 04/16/18 04/16/18 03:05 03:14 05:15 WBC Hgb Hct MCV MCH MCHC RDW Plt Count Seg Neuts % (Manual) Lymphocytes % (Manual) Nucleated RBC % Seg Neutrophils # Man Lymphocytes # (Manual) Monocytes # (Manual) PT INR POC ABG pH 6.973 L POC ABG pCO2 15.3 L POC ABG pO2 151 H Chloride Carbon Dioxide BUN Creatinine Glucose POC Glucose 180 H 137 H Lactic Acid Calcium Total Bilirubin AST Alkaline Phosphatase C-Reactive Protein Albumin Lipase Urine WBC (Auto) 04/16/18 04/16/18 04/16/18 06:33 06:41 07:59 WBC Hgb Hct MCV MCH MCHC RDW Plt Count Seg Neuts % (Manual) Lymphocytes % (Manual) Nucleated RBC % Seg Neutrophils # Man Lymphocytes # (Manual) Monocytes # (Manual) PT INR POC ABG pH POC ABG pCO2 POC ABG pO2 Chloride Carbon Dioxide BUN Creatinine Glucose POC Glucose 118 H 122 H Lactic Acid 22.20 H* Calcium Total Bilirubin AST Alkaline Phosphatase C-Reactive Protein Albumin Lipase Urine WBC (Auto) 04/16/18 04/16/18 09:08 09:15 WBC Hgb Hct MCV MCH MCHC RDW Plt Count Seg Neuts % (Manual) Lymphocytes % (Manual) Nucleated RBC % Seg Neutrophils # Man Lymphocytes # (Manual) Monocytes # (Manual) PT INR POC ABG pH POC ABG pCO2 POC ABG pO2 Chloride Carbon Dioxide BUN Creatinine Glucose POC Glucose 107 H Lactic Acid 23.90 H* Calcium Total Bilirubin AST Alkaline Phosphatase C-Reactive Protein Albumin Lipase Urine WBC (Auto) Chest x-ray: image reviewed Allied health notes reviewed: nursing
[2018-04-16] MEDS: SIMPLE SYRUP FEEDTUBE PRN ×2 (13:14→14:03)
[2018-04-16] MEDS ORDERED: SODIUM BICARBONATE IV NR ×2 (14:00→14:30)
[2018-04-16] MEDS ORDERED: SODIUM BICARBONATE 150 MEQ in NACL 0.9% 1000 ML 1,000 ML IV SCH (14:00)
[2018-04-16] MEDS ORDERED: NACL 0.9% 500 ML 500 ML IV SCH (14:29)
[2018-04-16] MEDS ORDERED: QUELICIN ONE (14:39)
[2018-04-16] MEDS ORDERED: D10W 1,000 ML with SODIUM BICARBONATE 150 MEQ IV SCH (15:00)
--- NOTE | 2018-04-16 15:11 | Event Note ---
Date: 04/16/18 Family has decided on withdrawal - fentanyl 50 mics IV q2h prn agitation - after family gather will stop all vasopressors (BP 67/42 now) - prn ativan for agitation
[2018-04-16] MEDS ORDERED: SUBLIMAZE IV PRN (15:12)
[2018-04-16] MEDS ORDERED: ATIVAN IV PRN (15:14)
--- NOTE | 2018-04-16 17:50 | Death Summary ---
Summary - Providers Date of service: 04/16/18 Consults: 04/15/18 06:10 Consult to Physician [CONS] Routine Comment: Consulting Provider: DEVEN LEDESMA Physician Instructions: Reason For Exam: cc Consult to Physician [CONS] Routine Comment: Consulting Provider: ZHANNA YBARRA Physician Instructions: Reason For Exam: arf 04/15/18 09:41 Consult to Physician [CONS] Routine Comment: Consulting Provider: CLAUDIA NARAYAN Physician Instructions: Reason For Exam: septic shock 04/15/18 10:29 Consult to Dietitian/Nutrition [CONS] Routine Physician Instructions: Reason For Exam: Reason for Consult: Malnutrition 04/15/18 13:49 Consult to Dietitian/Nutrition [CONS] Routine Physician Instructions: Reason For Exam: Reason for Consult: Write/Manage Tube Feeding 04/15/18 14:13 Consult to Physician [CONS] Routine Comment: Consulting Provider: TAYLOR URIBE Physician Instructions: Reason For Exam: Thrombocytopenia; Metastatic Colon CA 04/15/18 23:45 Consult to PICC Line RN [CONS] Stat Reason For Exam: have IVT to insert in am- need more central line a Type Line:: PICC 04/16/18 15:55 Consult to Wound/ET Nurse [CONS] Urgent Reason For Exam: colostomy, has been seen by wound care Attending: LUCIANO GONZALEZ - summary Date of admission: 04/15/18 06:40 Date of : 04/16/18 Significant findings: Patient is a 52 yo woman with a history of metastatic colon cancer to liver and lymph node s/p resection and chemotherapy with a colostomy who recently moved to this area from [place] whom I discharged in February 2018 to home with hospice after blood loss anemia most likely complication from colon cancer who now presents to [facility] with abd pains. She was found to be hypotensive and started on Levophed IV resuscitative infusion. It appears she has septic shock. It appears she was taking out of hospice by daughter per chart. During the night , pt failed bipap and was intubated last night, 04/15/18. * 04/16/18 CT abd/pelvis wo contrast IMPRESSION: Bilateral pulmonary masses again noted suspicious for metastatic malignancy.. Liver is enlarged and heterogeneous with evidence of possible metastatic malignancy.. There has been a cholecystectomy. There is a stent in the common bile duct. The intrahepatic bile ducts are dilated.. There is a mass in the head of the pancreas suspicious for malignancy.. There is a left adrenal mass suspicious for malignancy.. There are no kidney stones or ureteral stones. There is no hydronephrosis.. There is a right lower quadrant colostomy. There is no bowel obstruction.. There is no ascites or free air.. There is bilateral inguinal lymphadenopathy. There is pelvic and retroperitoneal and mesenteric adenopathy suspicious for metastatic malignancy.. * pCXR IMPRESSION: Extensive bilateral airspace disease suspicious for bilateral pneumonia. * post Intubation pCXR IMPRESSION: Endotracheal tube extending to the right main bronchus should be pulled back. Feeding tube placement. Right greater than left infiltrates or edema. -Septic shock with multi system organ failure, multiple etiologies per ID: treat with broad spectrum antibiotics and vasopressors. -Acute hypoxic respiratory failure: Mechanical ventilatory support. -Metastatic Colon cancer: poor prognosis -Acute renal failure, ATN with hypotension and vasomotor nephropathy, poa: treat with resuscitative IVF, repeat levels, [employer], Dr. Ybarra is following. -Sepsis with Bilateral Aspiration Pneumonia: treat with IV abx -Suspect Severe protein calorie malnutrition, poa: consult Operations Supervisor 2Nd Shift -Acute blood loss anemia from fungating mass at the stomy site most likely the colon cancer protruding outside of the stomach wall which is actively bleeding. -DVT prophylaxis: scd only due to GI Bleed with worsening anemia Family meeting done with daughter Pam and patient sister, brother and nephrew with Aunt on speaker phone. Dr. Ledesma and Dr. Uribe were in attendance. I conveyed to family that patient is actively dying. grave prognosis. Patient is maxed out on levophed, Vasopressin and dopamine is being triated up. Patient has agonal breathing and comatose. She need additional central line but plt is only 37. Family considering withdrawal. Asystole 5:05 pm I pronounced at 5:10 pm Family at bedside Cause of : Colon Cancer Time of : 5:10 pm
--- NOTE | 2018-04-16 21:24 | Event Note ---
Date: 04/16/18 terminal - gasping - hypotensive - on pressors colon ca - pt was in hospice participated in family meeting [phone]
--- NOTE | 2018-04-17 05:10 | Consultation ---
ONCOLOGY CONSULTATION Referred by Dr. Vincent. REASON FOR CONSULTATION: Colon CA. HISTORY OF PRESENT ILLNESS: I saw the patient in ICU. The patient is a 52-year-old female with metastatic colon cancer, status post colostomy. The patient has had multiple lines of chemotherapy at different Oncology system, the details of which are not clear. In February of 2018, after detailed discussion, she was discharged to hospice; however, as she was having pain issues, the family took her off hospice and brought her to the hospital. The patient was intubated and she was gasping for air when I evaluated the patient. REVIEW OF SYSTEMS: Not available. Most of the information comes from the EMR and family members. PAST MEDICAL HISTORY: 1. Colon cancer. 2. Lung lesions. PAST SURGICAL HISTORY: Colon resection with colostomy. SOCIAL HISTORY: As per the notes, no alcohol, no drugs. ALLERGIES: KETOROLAC AND DEMEROL. PHYSICAL EXAMINATION: VITAL SIGNS: Temperature 94.4, pulse 95, respirations 15, BP was 71/37. The patient on vent, gasping. HEART: S1, S2. LUNGS: Poor air entry. ABDOMEN: Colostomy present with tumor. NEUROLOGIC: Not able to evaluate. LABORATORY DATA: White cell 62, hemoglobin 9.5, MCV 87, platelet 37, potassium 4.6, creatinine 5.4. CT abdomen and pelvis was done. IMPRESSION: 1. Stage 4 colon cancer based on information available. 2. Thrombocytopenia. 3. Leukocytosis. 4. The patient intubated on pressors with low blood pressure. 5. Renal impairment. 6. Electrolyte issues. At this time, the patient's overall condition is poor. I participated in the family conference with sleeve fixer and Dr. Vincent and the family was made aware about the terminal condition of the patient. JOB# [id number] NM/NTS
== END 2018-04-16 19:13 | DRG 871 ==
LOC: ED 23:11 → CC1 04-15 06:40
PROVIDERS: ADMIT Internal Medicine; ATTEND Internal Medicine
PROC: 5A1935Z Respiratory Ventilation, Less than 24 Consecutive Hours (ICD-10-PCS; principal; 2018-04-15)
PROC: 4A033R1 Measurement of Arterial Saturation, Peripheral, Percutaneous Approach (ICD-10-PCS; 2018-04-15)
PROC: 0BH17EZ Insertion of Endotracheal Airway into Trachea, Via Natural or Artificial Opening (ICD-10-PCS; 2018-04-15)
PROC: 5A09357 Assistance with Respiratory Ventilation, Less than 24 Consecutive Hours, Continuous Positive Airway Pressure (ICD-10-PCS; 2018-04-15)
DX: A41.9 Sepsis, unspecified organism (principal); N17.0 Acute kidney failure with tubular necrosis; J96.01 Acute respiratory failure with hypoxia; J69.0 Pneumonitis due to inhalation of food and vomit; R65.21 Severe sepsis with septic shock; E43 Unspecified severe protein-calorie malnutrition; G93.40 Encephalopathy, unspecified; C18.9 Malignant neoplasm of colon, unspecified; Z68.25 Body mass index [BMI] 25.0-25.9, adult; C78.7 Secondary malignant neoplasm of liver and intrahepatic bile duct; C77.9 Secondary and unspecified malignant neoplasm of lymph node, unspecified; Z92.21 Personal history of antineoplastic chemotherapy; Z93.3 Colostomy status; Z90.49 Acquired absence of other specified parts of digestive tract; D62 Acute posthemorrhagic anemia; I46.9 Cardiac arrest, cause unspecified; Z98.49 Cataract extraction status, unspecified eye; Z82.49 Family history of ischemic heart disease and other diseases of the circulatory system; Z88.6 Allergy status to analgesic agent; Z88.8 Allergy status to other drugs, medicaments and biological substances; Z79.899 Other long term (current) drug therapy; E86.0 Dehydration; D69.6 Thrombocytopenia, unspecified; N18.3 Chronic kidney disease, stage 3 (moderate); C78.00 Secondary malignant neoplasm of unspecified lung; E16.2 Hypoglycemia, unspecified; Z53.8 Procedure and treatment not carried out for other reasons
CPT/HCPCS: 36415; 36600; 71045; 74018; 74176; 80048; 80053; 81001; 82140; 82803; 82947; 82962; 83690; 85007; 85025; 85610; 86140; 87040; 87070; 87086; 87205; 93970; 94002; 94003; 94660; 96361; 96365; 96366; 96375; 96376; J0330; J0692; J1265; J1630; J1956; J2250; J2270; J2405; J2543; J3010; J3370; J7030; J7040; J7070; P9047